=== PATIENT | female | born 1985 | race Caucasian/White ===

== ENCOUNTER 2017-06-12 15:32 | Emergency (ER) | payer OTHER, SELFPAY | END 2017-06-12 16:38 | disposition home or self-care (01) | PROVIDERS: Emergency Provider Nurse Practitioner Family; Family Provider Emergency Medicine; Visit Provider Nurse Practitioner Family | DX: R07.81 Pleurodynia (principal) | CPT/HCPCS: 71020; 81025; 99201 ==

== ENCOUNTER → 2017-07-31 12:39 | Outpatient (CLI) | payer OTHER, SELFPAY ==
[2017-07-31 13:09] LABS: Basophils % 0.6 % (0.1-2.0); Eosinophils % 0.6 % (0.1-12.0); Hematocrit 30.6 % (37.0-47.0); Hemoglobin 9.3 g/dL (12.2-16.2); Lymphocytes # 1.7 K/mm3 (0.7-4.5); Lymphocytes % 22.5 K/mm3 (10-50); Mean Corpuscular HGB Conc 30.4 g/dL (31.8-35.4); Mean Corpuscular Hemoglobin 23.5 pg (27.0-31.2); Mean Corpuscular Volume 77.4 fl (81-99); Monocytes # 0.3 K/mm3 (0.1-1.0); Monocytes % 4.5 % (1.7-9.3); Neutrophils # 5.3 K/mm3 (1.8-7.8); Neutrophils % 71.8 % (37.0-80.0); Platelet Count 221 K/mm3 (142-424); Red Blood Count 3.96 M/mm3 (4.20-5.40); Red Cell Distribution Width 14.9 % (11.5-17.5); White Blood Count 7.4 K/mm3 (4.8-10.8)
[2017-08-01 07:14] LABS: HIV Screen 4th Generation wRfx Non Reactive (Non Reactive)
[2017-08-02 18:17] LABS: Hepatitis B Surface Antigen Negative (Negative); Hepatitis C Antibody 0.1 s/co ratio (0.0-0.9); Rapid Plasma Reagin Ab Titer Non Reactive (NonRea<1:1); Rubella Antibodies, IgG <0.90 index (Immune >0.99)
== END ==
PROVIDERS: Family Provider Emergency Medicine; PCP Emergency Medicine; Visit Provider Nurse Practitioner Obstetrics & Gynecology
DX: Z34.90 Encounter for supervision of normal pregnancy, unspecified, unspecified trimester (principal)
CPT/HCPCS: 85025; 86592; 86703; 86762; 86850; 87340; 87380; G0432

== ENCOUNTER → 2017-08-08 10:06 | Outpatient (CLI) | payer OTHER, SELFPAY ==
--- NOTE | 2017-08-08 10:23 | US_ITS ---
US OB /maternal detail: INDICATION: ITS.REASON: 20 wk+ Anatomy Scan ORDERING PHYSICIAN: Russell Anderson MD PATIENT AGE: 31 years TECHNIQUE: ultrasound transabdominal scanning. COMPARISON: No previous relevant studies. FINDINGS: Single viable intrauterine gestation. breech position. Placenta: anterior placenta grade 1. Amniotic fluid volume is slightly elevated with an ARTHUR of 19 cm. The cervix appears satisfactory. Closed and measuring 3.5 cm in length. Complete survey performed and was unremarkable on the submitted images as in PACS. No discrete anomalies identified on survey imaging by technologist. Active fetus. Three-vessel cord with satisfactory umbilical cord insertion. 4- chamber heart noted. Survey of brain & ventricles. Face and neck survey unremarkable. Diaphragm and chest views unremarkable. Abdomen: Both kidneys noted and unremarkable. Stomach noted and satisfactory. Spine: Survey of the spine satisfactory with no anomalies identified nor imaged. Both arms and legs noted. Amniotic Fluid: Adequate. Maternal adnexa: No significant findings. Measurements: Average ultrasound age 27w2d. Gestational Age . Estimated due date by ultrasound age 0511/05/2017. Estimated weight 985 grams. The percentile size was not calculated. BPD = 28w1d OFD = 27w2d HC = 27w2d AC = 26w5d FL = 26w5d Heart Rate = 144 bpm Cerebellum = 28w1d Humerus = 26w1d HC/AC is 1.13. CI is 79%. FL/BPD is 71%. FL/AC is 22%. The amniotic fluid index is elevated at 19 cm. IMPRESSION: There is a live intrauterine gestation at 27 weeks 2 days with an estimated due date of 11/05/2017. Amniotic fluid volume is slightly elevated at 19 cm. No obvious anomalies. Please see above for detail
== END ==
PROVIDERS: Family Provider Emergency Medicine; PCP Emergency Medicine; Visit Provider Nurse Practitioner Obstetrics & Gynecology
DX: Z36.0 Encounter for antenatal screening for chromosomal anomalies (principal)
CPT/HCPCS: 76811

== ENCOUNTER 2017-08-15 16:48 | Outpatient (CLI) | payer OTHER, SELFPAY ==
--- NOTE | 2017-08-15 17:15 | HMH.ACPN2 ---
Internal Medicine - PN: Subj *Date: 08/15/17 *Time: 17:15 Interval history: She 26 weeks complaining of some left swelling in her feet and legs. Says it is worse at the end of the day and better in the mornings. She says it is been going on for at least a month. She does not have any Homans sign she does have some edema in the left foot and 1+ edema in the left lower leg. Her calf is nontender. Exam - Constitutional no acute distress Assessment and Plan (1) Current visit: No Status: Acute Qualifiers: Category: Medical Code(s): Z34.90 - Encounter for supervision of normal , unspecified, unspecified trimester - Assessment and plan all Dx Assessment and Plan for all problems:: She just has a minimal amount of swelling in her left leg. She does not have any Homans sign or calf tenderness. She has an appointment in my office tomorrow morning.
[2017-08-15 17:26] VITALS: BP 99/61; PULSE 104; RESP 18; TEMP 37; O2SAT 98; BMI 33.5
== END 2017-08-15 18:35 | disposition home or self-care (01) ==
LOC: OBOUT 16:49 → OB 16:50
PROVIDERS: PCP Emergency Medicine; Visit Provider Nurse Practitioner Obstetrics & Gynecology
DX: O12.03 Gestational edema, third trimester (principal); Z3A.28 28 weeks gestation of pregnancy; R60.0 Localized edema
CPT/HCPCS: 59025

== ENCOUNTER → 2017-08-16 09:18 | Outpatient (CLI) | payer OTHER, SELFPAY ==
--- NOTE | 2017-08-16 09:21 | NVE_ITS ---
Venous Exam Indications: 729.5 Pain in limb. 782.3 Edema. IMPRESSIONS No evidence of deep or superficial vein thrombosis involving the right lower extremity and left lower extremity History: Swelling of both lower extremities. Risk factors: : 29 weeks. Patient states both her legs began swelling 08/11/17. The left is greater than right. Denies trauma. Complete lower extremity venous duplex evaluation. Doppler flow study including spectral analysis, color and farnsworth scale imaging. Location: Vascular laboratory. Patient status: Outpatient. CRITICAL FINDINGS - Reported to: Dr. Anderson - Read back and verified. - 08/16/17 - 09:45 - Bilateral venous dopplers negative for DVT or SVT Tables: Venous flow and imaging: + +-------+ + Location Overall Flow properties + +-------+ + Right common femoral Patent Normal phasicity; spontaneous; normal augmentation; compressible + +-------+ + Right saphenofemoral junction Patent Compressible + +-------+ + Right profunda femoral Patent Compressible + +-------+ + Right femoral Patent Normal phasicity; spontaneous; normal augmentation; compressible; no reflux + +-------+ + Right greater saphenous Patent Normal phasicity; spontaneous; normal augmentation; compressible + +-------+ + Right popliteal Patent Normal phasicity; spontaneous; normal augmentation; compressible + +-------+ + Right posterior tibial Patent Compressible + +-------+ + Right peroneal Patent Compressible + +-------+ + Right gastrocnemius Patent Compressible + +-------+ + Right soleal Patent Compressible + +-------+ + Left common femoral Patent Normal phasicity; spontaneous; normal augmentation; compressible + +-------+ + Left saphenofemoral junction Patent Compressible + +-------+ + Left profunda femoral Patent Compressible + +-------+ + Left femoral Patent Normal phasicity; spontaneous; normal augmentation; compressible + +
== END ==
PROVIDERS: Family Provider Emergency Medicine; PCP Emergency Medicine; Visit Provider Nurse Practitioner Obstetrics & Gynecology
DX: M79.89 Other specified soft tissue disorders (principal); R60.0 Localized edema; M79.604 Pain in right leg; M79.605 Pain in left leg
CPT/HCPCS: 93970

== ENCOUNTER 2017-08-22 06:57 | Outpatient (CLI) | payer OTHER, SELFPAY ==
--- NOTE | 2017-08-22 | US_ITS ---
US OB biophysical profile, US OB follow up, US SD Ratio umbilcal artery: Indication: Pelvic pain, abdominal pain ITS.REASON: Pain ORDERING PHYSICIAN: Russell Anderson MD PATIENT AGE: 32 years COMPARISON: 08/08/2017 FINDINGS: There is a single live fetus present which is in cephalic presentation. heart and body motion noted. The placenta is anterior and grade 1. No previa or abruption. The following parameters are obtained: Average ultrasound age is 29 weeks 5 days. Estimated due date by ultrasound is 11/02/2017. Estimated weight is 1419 g. This is 42nd percentile BPD: 30 weeks 6 days OFD: 28 weeks 4 days HC: 29 weeks 2 days AC: 30 weeks 4 days FL: 28 weeks 0 days heart rate: 156 bpm. HC/AC: 1.01 Cephalic index: 83% FL/BPD: 68% FL/AC: 20% Amniotic fluid index: 28.4. There is polyhydramnios. Previously the amniotic fluid index was 19 cm. Qualitative AFV: 2 breathing movements: 2 Gross body movements: 2 Tone: 2 Biophysical profile score: 8/8 Doppler evaluation of the umbilical artery: SD ratio: 2.3 Resistive index: 0.57 No obvious anomalies evident. Placenta: Anterior and grade 1 Cervix: Appears closed and measures 4 cm. There is questionable thinning of the anterior uterine wall near the region of the section. Patient's left kidney and spleen are imaged and have an unremarkable appearance. IMPRESSION: 1. There is a single live fetus in cephalic presentation with an average ultrasound age of 29 weeks 5 days with estimated due date of 11/02/2017. There has been adequate progression compared to the previous study. 2. Polyhydramnios with an ARTHUR of 28 cm previously 19 cm 3. Questionable thinning of the anterior uterine wall. 4. Biophysical profile 8 of 8 5. Unremarkable Doppler evaluation of the umbilical artery
[2017-08-22 07:20] VITALS: BP 121/75; PULSE 114; RESP 22; TEMP 36.8; O2SAT 99; BMI 33.5
[2017-08-22 07:46] VITALS: BMI 33.5
[2017-08-22 08:03] LABS: Appearance,Urine CLOUDY (Clear); Bilirubin,Urine Negative (Negative); Blood, Urine Negative (Negative); Color,Urine YELLOW (Yellow); Glucose,Urine (UA) Negative (Negative); Ketones,Urine Negative (Negative); Leukocyte Esterase,Urine 2+ (Negative); Microscopic, Urine URINE MICROSCOPIC (MICROSCOPIC); Nitrate,Urine Negative (Negative); Protein,Urine Negative (Negative); Specific Gravity, Urine 1.025 (1.005-1.030); Urobilinogen,Urine 0.2 EU/dl (0.2)
[2017-08-22 08:25] LABS: Bacteria,Urine 1+ /lpf; Squamous Epithelial Cell,Urine TNTC #/hpf (0-5)
--- NOTE | 2017-08-22 08:27 | P.PN_ITS ---
Internal Medicine - PN: Subj *Date: 08/22/17 *Time: 08:26 Interval history: She is a 32-year-old 3 para 2 who is 29 weeks gestational age. She started having lower abdominal pain this morning. The pain seems to come and go. On the monitor she is not having contractions. Her cervix is long as. She has had 2 previous sections. She is tender over her utero-ovarian Exam Vital signs and Labs for Last 24 Hours: Temp Pulse Resp BP Pulse Ox 98.2 F 114 H 22 121/75 99 08/22/17 07:20 08/22/17 07:20 08/22/17 07:20 08/22/17 07:20 08/22/17 07:20 Laboratory Results - last 24 hr 08/22/17 07:15: Urine Color Yellow, Urine Appearance Cloudy, Urine pH 6.0, Ur Specific [place] 1.025, Urine Protein Negative, Urine Glucose (UA) Negative, Urine Ketones Negative, Urine Blood Negative, Urine Nitrate Negative, Urine Bilirubin Negative, Urine Urobilinogen 0.2, Ur Leukocyte Esterase 2+ A, Urine RBC None, Urine WBC 5-10, Ur Squamous Epith Cells Tntc, Urine Bacteria 1+ I & O for Last 24 hours: Intake & Output 08/19/17 08/20/17 08/21/17 08/22/17 11:59 11:59 11:59 11:59 Weight 214 lb - Constitutional mild distress - *Routine Abdominal Exam Present: soft, tenderness Assessment and Plan (1) False labor before 37 completed weeks of gestation Current visit: Yes Status: Acute Category: Medical Code(s): O47.00 - False labor before 37 completed weeks of gestation, unspecified trimester - Assessment and plan all Dx Assessment and Plan for all problems:: It is not clear what is causing her discomfort but I am concerned about labor as well as dehiscence of her uterine scar. We will get an ultrasound this morning. We will give her a fluid bolus. We will give her something for pain.
[2017-08-22 11:36] LABS: Amphetamine/Metha Screen,Urine Negative ng/mL (<1000); Barbiturates Screen,Urine Negative ng/mL (<200); Benzodiazepines Screen,Urine Negative ng/mL (200); Cannabinoid Screen,Urine Negative ng/mL (<50); Cocaine Screen,Urine Negative ng/g (<300); Methadone Screen,Urine Negative ng/mL (<300); Opiate Screen,Urine Negative ng/mL (<300); Phencyclidine Screen,Urine Negative ng/mL (<25)
[2017-08-22 12:30] VITALS: BP 101/67; PULSE 120; RESP 26; TEMP 36.6; O2SAT 99
== END 2017-08-22 13:54 | disposition hospice, home (50) ==
LOC: OBOUT 06:58 → OB 07:00
PROVIDERS: PCP Nurse Practitioner Obstetrics & Gynecology; Visit Provider Nurse Practitioner Obstetrics & Gynecology
DX: O26.893 Other specified pregnancy related conditions, third trimester (principal); Z3A.29 29 weeks gestation of pregnancy; R10.30 Lower abdominal pain, unspecified
CPT/HCPCS: 59025; 76816; 76819; 76820; 80305; 81001; 87086; 87088; 87186; 96360; 96361; 96372

== ENCOUNTER 2017-08-23 10:41 | Outpatient (CLI) | payer OTHER, SELFPAY ==
[2017-08-23 11:02] VITALS: BMI 35.0
[2017-08-23 11:03] VITALS: BP 119/72; PULSE 111; RESP 18; TEMP 36.5; O2SAT 97; BMI 34.9
== END 2017-08-23 11:27 | disposition home or self-care (01) ==
LOC: OBOUT 10:42 → OB 10:44
PROVIDERS: PCP Emergency Medicine; Visit Provider Nurse Practitioner Obstetrics & Gynecology
DX: O60.03 Preterm labor without delivery, third trimester (principal); Z3A.30 30 weeks gestation of pregnancy
CPT/HCPCS: 96372

== ENCOUNTER 2017-09-16 01:12 | Inpatient (IN) ==
[2017-09-16 01:52] LABS: Basophils # 0.1 K/mm3 (0-0.2); Basophils % 0.5 % (0.1-2.0); Eosinophils # 0.1 K/mm3 (0.0-0.4); Eosinophils % 0.7 % (0.1-12.0); Hematocrit 35.3 % (37.0-47.0); Hemoglobin 10.8 g/dL (12.2-16.2); Lymphocytes # 4.1 K/mm3 (0.7-4.5); Lymphocytes % 41.4 K/mm3 (10-50); Mean Corpuscular HGB Conc 30.8 g/dL (31.8-35.4); Mean Corpuscular Hemoglobin 24.9 pg (27.0-31.2); Mean Corpuscular Volume 80.8 fl (81-99); Mean Platelet Volume 10.3 fl (7.4-10.4); Monocytes # 0.5 K/mm3 (0.1-1.0); Monocytes % 4.7 % (1.7-9.3); Neutrophils # 5.2 K/mm3 (1.8-7.8); Neutrophils % 52.8 % (37.0-80.0); Platelet Count 272 K/mm3 (142-424); Red Blood Count 4.36 M/mm3 (4.20-5.40); White Blood Count 9.8 K/mm3 (4.8-10.8)
--- NOTE | 2017-09-16 03:41 | Operative Note ---
Date of procedure: 09/16/17 Pre-op Diagnosis:: premature rupture of membranes, possible abruption, desire for sterilization, previous section Post-op Diagnosis:: premature rupture of membranes possible small abruption, desire for sterilization, previous section, breech presentation Procedure performed:: Repeat lower segment transverse section and bilateral salpingectomy. Surgeon:: Russell Anderson MD Planisher(s):: Dr. Elkins NURSE WOUND CARE:: Bunny Leblanc Anesthesia: spinal Estimated blood loss (mL): 600 Clinical Note:: She is a 32-year-old 3 para 2 who is 33 and 5 weeks gestational age. She came in with ruptured membranes that happened about 1:00 in the morning. She was having some vaginal bleeding and we suspect that she may have had a small abruption as well. As result of that we elected to perform a repeat lower segment transverse section. She also had expressed desire for sterilization. The risks and benefits of surgery were discussed the patient prior to surgery. Operative findings:: She delivered a liveborn male child at 2:54 AM on the morning of September 16, 2017. We really did not see any evidence of abruption. The lower segment was not very well formed. The baby had a very thick gelatinous cord. The baby had Apgars of 5 at 1 and 5 at 5 minutes. The fetus was in the breech presentation. PH was 7.30. Ovaries and tubes appeared normal. Operative note:: She was taken to the operating room where spinal anesthesia was found be adequate. She was prepped and draped in normal sterile fashion in the supine position with a leftward tilt. A Jose catheter was in the bladder. A Pfannenstiel skin incision was made with knife then carried through to the underlying layer of fascia with cautery. The fascia was opened in the midline with cautery and extended laterally using Bravo scissors. Michael clamps were applied to the superior aspect of the fascial incision which was tented up and the underlying rectus muscles dissected off using cautery. The Michael clamps were then applied to the inferior aspect of the fascial incision which in a similar fashion was tented up and the underlying rectus muscles dissected off using cautery. The rectus muscles were then in the midline, the peritoneum identified, and entered sharply with Metzenbaum scissors. This incision was then extended superiorly and inferiorly with cautery. We had good visualization of the bladder inferiorly. The lower blade of the [place] was inserted so as to push the bladder out of the way. There was really no lower segment formed so we elected to just make a transverse incision through the uterine muscle in the lower segment. Transverse incision was made through the uterine muscle to the amnion. This incision was then extended laterally using fingers traction. The amnion was entered sharply with knife. The 's breech was then delivered atraumatically. This was followed by the shoulders and the rest of the ' s body atraumatically. The oropharynx and nasopharynx were bulb suctioned. The was then handed off to Dr. Dalal who assigned Apgars of 5 at 1 minute and 5 at 5 minutes. We then obtained cord blood as well as cord pH. The pH was 7.30. Using gentle traction on the cord and countertraction on the fundus I was able to easily deliver the placenta intact. It had a normal three-vessel cord. The uterus was then cleared of clots and debris and exteriorized from the abdominal cavity. The uterine incision was then closed using running 0 Vicryl suture in a locked fashion. A second layer of the same suture was used to imbricate the first layer. The bladder peritoneum was then closed using running 2-0 Vicryl suture in a locked fashion. We then performed a bilateral salpingectomy by first grasping the distal end of the right tube and using the cautery blade on its side we cauterized along the mesosalpinx. The distal end of the fallopian tube was then cut away at the cornua. There was a small amount of bleeding here and I grasped the distal end of the tube with a Crystal clamp and sutured this. This was similar performed on the patient's left side. The gutters and cul-de-sac were then cleared of clots and debris and the uterus was returned the abdominal cavity. Once again hemostasis was assured. I elected to place 2 pieces of Surgicel along the uterine incision. The peritoneum was grasped with Crystal clamps and closed using running 2-0 Vicryl suture. The rectus muscles were then reapproximated using running 0 Vicryl suture. The fascia was closed using running #1 Vicryl suture. The subcutaneous tissues were then irrigated with warm water followed by closure Kareen's fascia using running 2-0 Monocryl suture. The skin was closed with carey. Sterile dressings were applied. She tolerated the procedure well and was taken to the recovery room in excellent condition. All sponges minute and needle counts were correct. Estimate a blood loss was approximately 600 mL. Condition: stable Disposition: PACU Specimens:: Bilateral fallopian tubes, placenta Complications:: None
--- NOTE | 2017-09-16 04:07 | Progress Note ---
[facility] Anesthesia Checklist - Patient Identification Patient Identification: Arm Band - Structural Data Admitted From: Home Planned Operative Procedure/s: repeat c/s with btl Consent for Planned Operative Procedure(s) Verified: Yes Verified Documents: Surgical Consent, History and Physical - NPO Status Verified Time NPO: 00:00 - Additional verifications Anesthesia Reactions: No - Airway Assessment C-Spine Mobility Assessed: Yes (mp2) TMJ Mobility Assessed: Yes Dentition: Good Dentition - Neurological Assessment Level of Consciousness: Awake, Alert - Anesthesia Plan Anesthesia Risk discussed: Yes Anesthesia Plan: Verified ASA Class: II (e) Anesthesia Type: Spinal [facility] Anesthesia HX I have reviewed the patient's past medical history: Yes Medical History: Denies:: Anxiety, Asthma, Depression Other Surgeries: Yes: , Other (derrick) Amputation: No Fractures: No *Family Hx:: Cancer, Diabetes
--- NOTE | 2017-09-16 04:08 | Progress Note ---
[facility] Anesthesia Record Part II Discharge Time: 04:10 Destination: Obstetric PACU nurse assessment reviewed?: Yes Patient Condition:: Good Anesthesia Complications:: None
--- NOTE | 2017-09-16 04:08 | Progress Note ---
[facility] Anesthesia Record Part I Intake, IV Amount: 1,100 Estimated blood loss (mL): 600 Urine output (mL): 50 Blood Pressure: 106/65 SaO2: 100 Pulse Rate: 117 Respiratory Rate: 16 Temperature: 99.1 F Patient is:: Awake, Stable Stable to PACU at:: 03:40
--- NOTE | 2017-09-16 15:00 | Pharmacy Consult Notes ---
[facility] Pharmacy VTE Monitoring - Patient Demographics Admission date: 09/15/17 Report Date: 09/16/17 Time: 15:00 Allergies/Adverse Reactions: Patient Allergies topiramate [From TOPAMAX] Allergy (Unknown, Verified 09/13/17 13:32) amoxicillin Allergy (Verified 09/13/17 13:32) Height: 1.7 m Weight: 104.326 kg - VTE Risk Labs: VTE Related Lab Results Hgb 10.8 g/dL (12.2-16.2) L 09/16/17 01:43 Hct 35.3 % (37.0-47.0) L 09/16/17 01:43 Plt Count 272 K/mm3 (142-424) 09/16/17 01:43 BUN 12 mg/dL (7-18) 09/16/17 01:43 Creatinine 0.82 mg/dL (0.55-1.02) 09/16/17 01:43 Estimated Creat Clear 164 mL/min (0-300) 09/16/17 01:43 - Prophylaxis Types of VTE Prophylaxis: IPCS Knee High Location of Applied Device: Bilateral Lower Extremeties - VTE Diagnosis Confirmed Treatment or plan recommended: Continue Current Treatment
[2017-09-17 06:13] LABS: Basophils % 0.1 % (0.1-2.0); Eosinophils # 0.1 K/mm3 (0.0-0.4); Eosinophils % 0.7 % (0.1-12.0); Lymphocytes # 1.6 K/mm3 (0.7-4.5); Lymphocytes % 20.8 K/mm3 (10-50); Mean Corpuscular HGB Conc 29.8 g/dL (31.8-35.4); Mean Corpuscular Hemoglobin 24.6 pg (27.0-31.2); Mean Corpuscular Volume 82.6 fl (81-99); Mean Platelet Volume 8.7 fl (7.4-10.4); Monocytes # 0.5 K/mm3 (0.1-1.0); Monocytes % 6.5 % (1.7-9.3); Neutrophils # 5.7 K/mm3 (1.8-7.8); Platelet Count 131 K/mm3 (142-424); Red Blood Count 2.94 M/mm3 (4.20-5.40); Red Cell Distribution Width 16.3 % (11.5-17.5); White Blood Count 7.9 K/mm3 (4.8-10.8)
[2017-09-17 06:18] LABS: Hemoglobin 7.2 g/dL (12.2-16.2)
[2017-09-17 06:19] LABS: Hematocrit 24.2 % (37.0-47.0)
--- NOTE | 2017-09-17 13:19 | History & Physical Report ---
OB - H&P: HPI Antepartum - History of Present Illness Chief complaint: Ruptured membranes at 33 weeks - History of Present Criteria for establishing EDC:: LMP confirmed by 1st trimester US care: good care Ultrasounds: normal 1st trimester US, normal mid trimester US Obstetrical complications: previous Medical complications: none Planning to breastfeed?: No H History I have reviewed the patient's past medical history: Yes Medical History: Denies:: Anxiety, Asthma, Depression Other Surgeries: Yes: , Other (derrick) Amputation: No Fractures: No - *Social History Smoking Status: Never smoker Alcohol Intake: never Substance Use Type: denies use - Psychiatric History Pschychiatric History:: Denies:: Anxiety, Depression *Family Hx:: Cancer, Diabetes Para: 2 Meds Home Medications Medication Instructions Recorded Confirmed Type 1 tab PO DAILY 07/31/17 09/16/17 History vitamin,calcium,ophyhdzr-fywn-nlkvr acid tablet Loratadine [Claritin] 10 mg PO DAILY 08/15/17 09/16/17 History RX: Ferrous Sulfate 325 mg PO DAILY 08/15/17 09/16/17 History RX: raNITIdine HCl [Ranitidine HCl] 150 mg PO BID 08/15/17 09/16/17 History Allergies Allergy/AdvReac Type Severity Reaction Status Date / Time topiramate [From TOPAMAX] Allergy Unknown Verified 09/13/17 13:32 amoxicillin Allergy Verified 09/13/17 13:32 OB - H&P: Exam - Physical Exam Vital signs: Temp Pulse Resp BP Pulse Ox 98.1 F 105 H 18 123/63 100 09/17/17 13:00 09/17/17 13:00 09/17/17 13:00 09/17/17 13:00 09/17/17 13:00 - Constitutional no acute distress OB - Results - Labs Labs: Short CBC 09/17/17 Range/Units 05:30 WBC 7.9 (4.8-10.8) K/mm3 Hgb 7.2 L* (12.2-16.2) g/dL Hct 24.2 L (37.0-47.0) % Plt Count 131 L D (142-424) K/mm3 OB - A/P Antepartum (1) premature rupture of membranes (PPROM) delivered, current hospitalization Current visit: Yes Status: Acute (2) False labor before 37 completed weeks of gestation Current visit: No Status: Acute - Additional Plan Plan: other (She was delivered by section at 33 weeks and 5 days.)
--- NOTE | 2017-09-17 13:23 | Discharge Summary ---
General - General Admission date: 09/16/17 Discharge date: 09/17/17 HPI HPI: She is a 32-year-old 3 now para 3 who was 33 and 5 weeks gestational age. 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 The baby was in the breech presentation. She has had 2 previous sections and she was in active labor. As result of that we elected to deliver her. She also had some mild vaginal bleeding at the time of her ruptured membranes and was felt that she had possible mild abruption so this was further evidence that we should deliver her. She also expressed desire for sterilization. The risks and benefits of surgery as well as the irreversibility of bilateral salpingectomy were discussed with the patient prior to surgery. Hospital Course Hospital Course: On September 16 she underwent a repeat lower segment transverse section and delivered a liveborn male child at 2:54 AM on the morning of September 16, 2017. Baby was a liveborn male child weighing 4 lbs. 1 oz. with Apgars of 5 at 1 minute and 5 at 5 minutes. She has done well postoperatively and has remained afebrile throughout her hospitalization. The surgery her hemoglobin was 10.8 and this morning it was 7.2. As result of that we have elected to transfuse her 2 units of blood. We are awaiting the post transfusion hemoglobin. She has positive blood, she is rubella nonimmune and was group B streptococcus unknown. She is bottlefeeding. Her baby has been transferred to and it suspected that he has Jaun Thom syndrome. He is scheduled to have surgery soon. As result of this we are going to transfer her to the [facility]. Objective Vital signs: Temp Pulse Resp BP Pulse Ox 98.1 F 105 H 18 123/63 100 09/17/17 13:00 09/17/17 13:00 09/17/17 13:00 09/17/17 13:00 09/17/17 13:00 no acute distress - *Routine Abdominal Exam Present: soft Comments: Her incision is clean and dry. - *Routine Extremities Exam Present: edema Comments: She has 2+ pedal edema. Results Labs on day of discharge: Labs from last 24 hours 09/17/17 09/16/17 05:30 01:43 WBC 7.9 RBC 2.94 L D Hgb 7.2 L* Hct 24.2 L MCV 82.6 MCH 24.6 L MCHC 29.8 L RDW 16.3 Plt Count 131 L D MPV 8.7 Neut % (Auto) 72.0 Lymph % (Auto) 20.8 [place] % (Auto) 6.5 Eos % (Auto) 0.7 Baso % (Auto) 0.1 Neut # (Auto) 5.7 Lymph # (Auto) 1.6 [place] # (Auto) 0.5 Eos # (Auto) 0.1 Baso # (Auto) 0.0 Blood Type O Positive Antibody Screen Negative Crossmatch (AHG) See Detail DS: Diagnosis - Discharge Diagnosis (1) premature rupture of membranes (PPROM) delivered, current hospitalization Status: Acute (2) False labor before 37 completed weeks of gestation Status: Acute (3) Anemia, Status: Acute Discharge Plan - Patient Discharge Instructions ACTIVITY: No heavy lifting DIET: continue same diet - Follow up Plan Disposition: Xfer Short-Term Hosp Home Medications: Home Medications Medication Instructions Recorded Confirmed Type 1 tab PO DAILY 07/31/17 09/16/17 History vitamin,calcium,rzxcyoip-oqgw-tyvyk acid tablet Loratadine [Claritin] 10 mg PO DAILY 08/15/17 09/16/17 History RX: Ferrous Sulfate 325 mg PO DAILY 08/15/17 09/16/17 History RX: raNITIdine HCl [Ranitidine HCl] 150 mg PO BID 08/15/17 09/16/17 History Prescriptions/Medication Reconciliation: Continue vitamin,calcium,dlojthlk-fgzs-wimcq acid tablet 1 tab PO DAILY Loratadine [Claritin] 10 mg PO DAILY RX: Ferrous Sulfate 325 mg PO DAILY RX: raNITIdine HCl [Ranitidine HCl] 150 mg PO BID
[2017-09-17 13:41] LABS: Hematocrit 34.5 % (37.0-47.0)
[2017-09-17 13:46] LABS: Hemoglobin 10.8 g/dL (12.2-16.2)
== END 2017-09-17 20:39 | disposition short-term general hospital (02) ==
LOC: OBOUT 01:12 → OB 01:16
PROVIDERS: ADMIT Obstetrics & Gynecology; ATTEND Nurse Practitioner Obstetrics & Gynecology

== ENCOUNTER 2020-07-19 23:50 | Emergency (ER) | payer OTHER, SELFPAY ==
[2020-07-20 00:05] VITALS: BP 110/70; PULSE 115; RESP 18; TEMP 37; O2SAT 96; BMI 37.9
--- NOTE | 2020-07-20 00:11 | XR_ITS ---
PROCEDURE: XR KNEE LT 3V CLINICAL INDICATION: Twisting injury with pain COMPARISON: No exams were available for comparison FINDINGS: No fracture or dislocation. No lytic or blastic change. There is normal mineralization. The joint spaces are well-preserved. No significant degenerative/arthritic changes. No erosive changes evident. Other findings:There may be a small suprapatellar effusion IMPRESSION: Possible small suprapatellar effusion Dictated by: Lc Gunn MD 07/20/2020 06:08 Lc Gunn MD in OV 07/20/2020 06:08
--- NOTE | 2020-07-20 00:35 | HMH.EDLOEX ---
ED Disposition Clinical Impression: Left knee injury Qualifiers: Encounter type: initial encounter Qualified Code(s): S89.92XA - Unspecified injury of left lower leg, initial encounter Disposition: Home, Self-Care Condition on Discharge: Good Instructions: DI for Knee Pain Additional Instructions: ice and call ortho and pcp in am Referrals: Esau Vernon MD [Primary Care Provider] - Jama Matthews MD [Staff Physician] - - Critical Care Critical Care Time: No Attestation: On 07/19/20, the high probability of a clinically significant, sudden or life threatening deterioration of the following system(s) required my full and direct attention, intervention and personal management. The time I documented below is in addition to time spent performing reported procedures but includes the following listed in this critical care notation. Medical Decision Making - Medical Records Medical records reviewed: Yes: I reviewed the patient's medical records. - Regulo Inquiry Pt receiving controlled substance: No Vital Signs: 07/20/20 00:05 Temperature 98.6 F Temperature Source Oral Pulse Rate [Left] 115 H Respiratory Rate 18 Blood Pressure [Left Arm] 110/70 Blood Pressure Mean [Left Arm] 83 Blood Pressure Source [Left Arm] Automatic Cuff Blood Pressure Position [Left Arm] Sitting 02 Sat by Pulse Oximetry 96 Oxygen Delivery Method Room Air - Lab Data Lab results reviewed: Yes: I reviewed the patient's lab results. Orders (Tests/Meds): ED MEDICATIONS Discontinued Medications Generic Name Dose Route Start Last Admin Trade Name Freq PRN Reason Stop Dose Admin Dexamethasone Sodium Phosphate 8 mg 07/20/20 00:11 07/20/20 00:38 Dexamethasone 4mg/Ml 1ml Vial IV 07/20/20 00:12 Not Given ONCE ONE Dexamethasone Sodium Phosphate 8 mg 07/20/20 00:38 07/20/20 00:39 Dexamethasone 4mg/Ml 1ml Vial IM 07/20/20 00:39 8 mg ONCE ONE Administration Ketorolac Tromethamine 60 mg 07/20/20 00:11 07/20/20 00:37 Ketorolac 60mg/2ml Vial IM 07/20/20 00:12 60 mg ONCE ONE Administration ORDERS Category Date Time Status XR knee LT 3V Stat Exams 07/20/20 00:11 Taken - Radiology Data #1 Image(s): Knee Image Reviewed: Yes I reviewed the patient's radiology image Preliminary Findings: No Fracture Seen Lower Extremity Injury HPI - General Chief Complaint: Extremity Injury, Lower Stated Complaint: Pain in Left Knee;Gives out causing her to fall Time Seen by Provider: 07/20/20 00:15 Mode of Arrival: Ambulatory Source of Information: Patient, Medical Record Limitations: No Limitations Description of Symptoms (Recalled from ER Triage Doc. by RN): Pt states she twisted this evening and now has left knee pain with ROM and pressure - History of Present Illness HPI Narrative: rotation injury lt knee with swelling and pain with wt bearing today complaint: knee injury Onset (ago): hour(s) Injury: Left: knee Type of Injury: eversion Place: home Severity: moderate Context: walking Associated symptoms: snap/pop sensation, able to partially bear weight Other symptoms: none - Related Data Home Medications Medication Instructions Recorded Confirmed Loratadine [Allergy Relief] 10 mg PO DAILY 02/11/19 02/11/19 Previous Rx's Medication Instructions Recorded Azithromycin [Zithromax 250mg 250 mg PO DIRECTED #6 tab 02/11/19 tab] Benzonatate [Tessalon Perle 100mg 100 mg PO TID #30 cap 02/11/19 Cap] predniSONE [Prednisone 20mg 20 mg PO BID #10 tab 02/11/19 Tab] cefdinir 300 mg capsule 300 mg PO BID 7 Days #14 cap 02/15/19 Allergies Allergy/AdvReac Type Severity Reaction Status Date / Time topiramate [From TOPAMAX] Allergy Unknown Verified 09/01/18 00:40 amoxicillin Allergy Verified 09/01/18 00:40 [facility] History - Hepatitis A Screen Drug use history?: No High risk sexual behaviors?: No History of sexually transmitted infection?: No Currentl
[2020-07-20 00:53] VITALS: BP 114/72; PULSE 98; RESP 16; TEMP 37; O2SAT 98
== END 2020-07-20 00:55 | disposition home or self-care (01) ==
PROVIDERS: Emergency Provider Emergency Medicine; PCP Internal Medicine Adolescent Medicine
DX: S89.92XA Unspecified injury of left lower leg, initial encounter (principal); X50.1XXA Overexertion from prolonged static or awkward postures, initial encounter; Y92.019 Unspecified place in single-family (private) house as the place of occurrence of the external cause
CPT/HCPCS: 73562; 99282

== ENCOUNTER → 2020-07-24 12:19 | Outpatient (CLI) | payer OTHER, SELFPAY ==
--- NOTE | 2020-07-24 12:22 | XR_ITS ---
PROCEDURE: XR KNEE LT 4V CLINICAL INDICATION: LT knee pain COMPARISON: CR XR KNEE LT 3V from 07/20/2020 FINDINGS: No fracture or dislocation. No lytic or blastic change. There is normal mineralization. The joint spaces are well-preserved. No significant degenerative/arthritic changes. No erosive changes evident. Other findings:None. IMPRESSION: No acute findings. Dictated by: Lc Gunn MD 07/24/2020 13:16 Lc Gunn MD in [place] 07/24/2020 13:16
== END ==
PROVIDERS: PCP Internal Medicine Adolescent Medicine; Visit Provider Orthopaedic Surgery
DX: M25.562 Pain in left knee (principal)
CPT/HCPCS: 73564

== ENCOUNTER → 2020-07-30 15:14 | Outpatient (CLI) | payer OTHER, SELFPAY ==
--- NOTE | 2020-07-30 15:14 | MR_ITS ---
PROCEDURE: MR KNEE LT WO CON CLINICAL INDICATION: Left knee pain Injury with pain COMPARISON: CR XR KNEE LT 4V from 07/24/2020 TECHNIQUE: Routine multiplanar multi echo sequences are performed without gadolinium enhancement. FINDINGS: The cruciate ligaments, and medial collateral ligament are unremarkable. There is thickening of the proximal aspect of the fibular collateral ligament suggesting a sprain. The patellar tendon and quadriceps tendon appear intact and the patellar cartilage is well preserved. No evidence of meniscal tear. There is increased T2 signal involving the posterior aspect of the medial tibial condyle posteriorly consistent with bone bruise. There are some faint curvilinear areas of decreased T1 signal in this area suggesting microfracture. Only small amount of joint fluid noted. IMPRESSION: 1. Suspect sprain of the fibular collateral ligament proximally. 2. Bone bruise of the proximal tibia medially and posteriorly with suspected microfracture. 3. No evidence of cruciate ligament tear or meniscal tear. Dictated by: Lc Gunn MD 07/31/2020 09:11 Lc Gunn MD in [place] 07/31/2020 09:11
== END ==
PROVIDERS: PCP Internal Medicine Adolescent Medicine; Visit Provider Orthopaedic Surgery
DX: M25.562 Pain in left knee (principal)
CPT/HCPCS: 73721

== ENCOUNTER 2020-09-03 11:00 | Outpatient (RCR) | payer OTHER, SELFPAY ==
--- NOTE | 2020-08-07 11:16 | HMH.PTOPEV ---
PT Outpatient Evaluation Rehab PT Outpatient Evaluation Start: 08/07/20 11:08 Freq: Status: Active Protocol: Document 08/07/20 11:08 RADHA (Rec: 08/07/20 11:16 RADHA [id number]) Electronically Signed By Arvin Roberson, PT 08/07/20 11:08 Outpatient Therapy Subjective History Subjective History Pt reports acute injury to L knee in late , sit-to- stand w/twist, 'felt pop and it buckled'. Recent MRI has revealed L knee LCL sprain, and medial tibial plateau bone bruise. Pt reports moderate- to-severe L knee pain w/wb'ing activity, and 'it still feels unstable'. Chief Complaint Pain,Stiff,Clicks,Gives out/ Unstable,Weakness Symptom Type Ache,Sharp,Dull,Numbness Symptoms Relieved By Rest/Positioning,Ice, Prescription Meds Symptoms Aggravated By Standing,Physical Activity, Walking Prior Functional Limitations None Current Functional Limitations Housework,Standing,Walking, Stairs Symptom Description Constant but Variable Level of pain today (0-10) 8 Pain scale - at its best (0-10) 3 Pain scale - at its worst (0-10) 9 Hip/Knee Eval Gait Observation General Gait Pattern Observation Antalgic Gait,Wide Based Gait Palpation Tenderness left Knee Palpation Finding Tenderness Knee Palpation Overall Comment 3/4 LCL, medial JT LINE MMT Hip Flexion Strength Grade 4- Good- Hip Abduction Strength Grade 4- Good- Hip Adduction Strength Grade 4- Good- Hip Extension Strength Grade 4 Good Knee Extension Strength Grade 4- Good- Knee Flexion Strength Grade 4- Good- ROM Knee Flexion Active Range of Motion ( 0-100 degrees) Knee Flexion Passive Range of Motion ( 0-125 degrees) Knee ROM Limitations Pain Effusion joint effusion knee exam standard left Mid - Patellar Circumerential Measure ( 40.5 cm) Outpatient Therapy Assessment Impairments Problems/Impairmments Palpation Tenderness,Impaired Range of Motion,Impaired Strength,Impaired Gait Pattern ,Impaired Walking,Impaired Standing,Impaired Household Care,Impaired Stair Climbing, Increased Edema,Subjective C/O Pain,Impaired Self Care/Self
== END 2020-09-03 11:05 | disposition home or self-care (01) ==
LOC: PT 11:00
PROVIDERS: PCP Internal Medicine Adolescent Medicine; Visit Provider Orthopaedic Surgery
DX: S83.422D Sprain of lateral collateral ligament of left knee, subsequent encounter (principal)
CPT/HCPCS: 97010; 97014; 97035; 97110; 97163; G0283

== ENCOUNTER 2021-08-18 20:01 | Emergency (ER) | payer OTHER, SELFPAY ==
[2021-08-18 20:20] VITALS: BP 113/81; PULSE 70; RESP 18; TEMP 37; O2SAT 99; BMI 30.5
--- NOTE | 2021-08-18 20:26 | HMH.EDUTC ---
[facility] Clinical Impression: Migraine Qualifiers: Migraine type: unspecified Status migrainosus presence: without status migrainosus Intractability: not intractable Qualified Code(s): G43.909 - Migraine, unspecified, not intractable, without status migrainosus Disposition: Home, Self-Care Condition on Discharge: Good Instructions: Migraine -- Adult, DI for Migraine Additional Instructions: Go home lay down and try to sleep off remainder of migraine headache Follow up with Family Doctor if migraine returns Return if needed Straight to ER if any life threatening symptoms Referrals: Esau Vernon MD [Primary Care Provider] - As needed Time of Disposition: 21:08 Medical Decision Making - Regulo Inquiry Pt receiving controlled substance: No Regulo was queried for this patient: No Vital Signs: 08/18/21 20:20 Temperature 98.6 F Temperature Source Oral Pulse Rate [Right Radial] 70 Respiratory Rate 18 Blood Pressure [Right Arm] 113/81 Blood Pressure Mean [Right Arm] 91 Blood Pressure Source [Right Arm] Automatic Cuff Blood Pressure Position [Right Arm] Sitting 02 Sat by Pulse Oximetry 99 Oxygen Delivery Method Room Air Orders (Tests/Meds): ED MEDICATIONS Discontinued Medications Generic Name Dose Route Start Last Admin Trade Name Freq PRN Reason Stop Dose Admin Diphenhydramine HCl 25 mg 08/18/21 20:32 08/18/21 20:56 Diphenhydramine 50mg/Ml Vial IM 08/18/21 20:33 25 mg ONCE ONE Administration Ketorolac Tromethamine 60 mg 08/18/21 20:32 08/18/21 20:56 Ketorolac 60mg/2ml Vial IM 08/18/21 20:33 60 mg ONCE ONE Administration Metoclopramide HCl 10 mg 08/18/21 20:32 08/18/21 20:56 Metoclopramide 10mg Tablet PO 08/18/21 20:33 10 mg ONCE ONE Administration Medical Decision Narrative: Patient reports migraine much better after medication will dc home [facility] [place] - General Stated complaint: harp, UNDER STRESS Time Seen by Provider: 08/18/21 20:26 Mode of Arrival: Ambulatory Source of Information: Patient Limitations: No Limitations Description of Symptoms (Recalled from Triage Doc. by RN): c/o migraine since yesterday HEENT Symptoms (Recalled from RN notes): Yes (HARP) Resp Symptoms (Recalled from RN notes): No Skin Symptoms (Recalled from RN notes): No MS Symptoms (Recalled from RN notes): No Functional Status (Recalled from RN notes): n/a - History of Present Illness Provider Complaint: Patient states that she has a history of migraine headaches States that she started with migraine yesterday and it has continued today States that she has drink coffee and stuff like she has done in the past to help with it but hasnt worked Denies worse headache of life - Related Data Home Medications Medication Instructions Recorded Confirmed Loratadine [Allergy Relief] 10 mg PO DAILY 02/11/19 08/03/20 Previous Rx's Medication Instructions Recorded Benzonatate [Tessalon Perle 100mg 100 mg PO TID #30 cap 02/11/19 Cap] Allergies Allergy/AdvReac Type Severity Reaction Status Date / Time topiramate [From TOPAMAX] Allergy Unknown Verified 08/03/20 08:31 amoxicillin Allergy Verified 08/03/20 08:31 - Worker's Comp Is this a Worker's Comp case?: No [facility] History - Hepatitis A Screen Drug use history?: No High risk sexual behaviors?: No History of sexually transmitted infection?: No Currently employed?: No Childcare worker?: No Do you have indoor plumbing?: Yes Do you have electricity?: Yes Attestation statement:: This patient has been screened for Hepatitis A risk factors. I have reviewed the patient's past medical history: Yes Medical History: Denies:: Anxiety, Asthma, Depression, Diabetes Mellitus Type 1, Diabetes Mellitus Type 2 Other Medical History: Reports: Anemia, Other Laterality Cases: Bilateral: Other Other Surgeries: Yes: No Previous Surgery, , Other Amputation: No Fractures: No - Social History Smoking Status: Former
[2021-08-18 21:13] VITALS: BP 113/81; PULSE 70; RESP 18; TEMP 37; O2SAT 99
== END 2021-08-18 21:14 | disposition home or self-care (01) ==
PROVIDERS: Emergency Provider Nurse Practitioner; PCP Internal Medicine Adolescent Medicine
DX: G43.909 Migraine, unspecified, not intractable, without status migrainosus (principal)
CPT/HCPCS: 96372; 99202; G0463

== ENCOUNTER 2021-10-17 20:08 | Emergency (ER) | payer OTHER, SELFPAY ==
[2021-10-17 20:09] VITALS: BP 104/62; PULSE 123; O2SAT 99
[2021-10-17 20:10] VITALS: BMI 29.0
--- NOTE | 2021-10-17 20:10 | ECG_ITS ---
APPROVED REPORT Exam: Resting ECG HR:120 bpm ECG Measurements Heart Rate 120 AXES WV 125 P 67 QRSd 77 QRS 96 QT 339 T 3 QTc 410 Conclusion SINUS TACHYCARDIA BORDERLINE RIGHT AXIS DEVIATION [QRS AXIS > 90] NONSPECIFIC ST & T-WAVE ABNORMALITY ABNORMAL RHYTHM ECG UNCONFIRMED REPORT Electronically signed by : Burak Rincon MD 10/18/2021 14:14:09
[2021-10-17 20:11] VITALS: BP 104/62; PULSE 136; RESP 29; TEMP 36.7; O2SAT 96; BMI 29.0
--- NOTE | 2021-10-17 20:11 | XR_ITS ---
PROCEDURE INFORMATION: Exam: XR Chest Exam date and time: 10/17/2021 8:15 PM Age: 36 years old Clinical indication: Sternal or substernal pain; Additional info: Chest pain TECHNIQUE: Imaging protocol: XR of the chest. Views: 2 views. COMPARISON: CR XR CHEST 2V 02/11/2019 8:57 PM FINDINGS: Lungs: Unremarkable. No consolidation. Pleural spaces: Unremarkable. No pleural effusion. No pneumothorax. Heart/Mediastinum: Unremarkable. No cardiomegaly. Bones/joints: Unremarkable. IMPRESSION: No acute findings.
[2021-10-17 20:26] LABS: Microscopic, Urine URINE MICROSCOPIC (MICROSCOPIC)
[2021-10-17 20:30] VITALS: BP 108/63; PULSE 105; PULSE 97; RESP 14; RESP 25; O2SAT 98
[2021-10-17 20:30] LABS: Basophils # 0.2 K/mm3 (0-0.2); Basophils % 1.6 % (0.1-2.0); Eosinophils # 0.1 K/mm3 (0.0-0.4); Hematocrit 40.5 % (37.0-47.0); Hemoglobin 13.1 g/dL (12.2-16.2); Lymphocytes # 1.4 K/mm3 (0.7-4.5); Lymphocytes % 12.8 % (10-50); Mean Corpuscular HGB Conc 32.5 g/dL (31.8-35.4); Mean Corpuscular Hemoglobin 25.5 pg (27.0-31.2); Mean Corpuscular Volume 78.5 fl (81-99); Mean Platelet Volume 10.8 fl (7.4-10.4); Monocytes # 0.5 K/mm3 (0.1-1.0); Monocytes % 4.4 % (1.7-9.3); Neutrophils # 8.8 K/mm3 (1.8-7.8); Neutrophils % 80.2 % (37.0-80.0); Platelet Count 268 K/mm3 (142-424); Red Blood Count 5.15 M/mm3 (4.20-5.40); Red Cell Distribution Width 15.2 % (11.5-17.5)
[2021-10-17 20:30] LABS: Appearance,Urine SL CLOUDY (Clear); Blood, Urine 3+ (Negative); Color,Urine YELLOW (Yellow); Glucose,Urine (UA) Negative (Negative); Ketones,Urine TRACE (Negative); Leukocyte Esterase,Urine Negative (Negative); Nitrate,Urine Negative (Negative); PH,Urine 5.5 (5.0-8.5); Protein,Urine TRACE (Negative)
--- NOTE | 2021-10-17 20:30 | HMH.EDCP ---
ED Disposition Clinical Impression: Atypical chest pain Disposition: Home, Self-Care Condition on Discharge: Good Instructions: DI for Atypical Chest Pain Additional Instructions: call pcp for follow up Referrals: Esau Vernon MD [Primary Care Provider] - - Critical Care Critical Care Time: No Attestation: On 10/17/21, the high probability of a clinically significant, sudden or life threatening deterioration of the following system(s) required my full and direct attention, intervention and personal management. The time I documented below is in addition to time spent performing reported procedures but includes the following listed in this critical care notation. Medical Decision Making - Medical Records Medical records reviewed: Yes: I reviewed the patient's medical records. - Regulo Inquiry Pt receiving controlled substance: No Vital Signs: 10/17/21 20:09 10/17/21 20:11 10/17/21 20:30 Temperature 98.1 F Temperature Source Oral Pulse Rate 123 H 105 H Pulse Rate [Right Brachial] 136 H Respiratory Rate 29 H 25 H Blood Pressure 104/62 L 108/63 L Blood Pressure [Right Arm] 104/62 L Blood Pressure Mean 69 Blood Pressure Mean [Right Arm] 76 Blood Pressure Source [Right Arm] Automatic Cuff Blood Pressure Position [Right Arm] Sitting 02 Sat by Pulse Oximetry 99 96 98 Oxygen Delivery Method Room Air Room Air Room Air - Lab Data Lab results reviewed: Yes: I reviewed the patient's lab results. Lab Results 10/17/21 20:11: WBC 11.0 H, RBC 5.15, Hgb 13.1, Hct 40.5, MCV 78.5 L, MCH 25.5 L, MCHC 32.5, RDW 15.2, Plt Count 268, MPV 10.8 H, Neut % (Auto) 80.2 H, Lymph % (Auto) 12.8, [place] % (Auto) 4.4, Eos % (Auto) 1.0, Baso % (Auto) 1.6, Neut # (Auto) 8.8 H, Lymph # (Auto) 1.4, [place] # (Auto) 0.5, Eos # (Auto) 0.1, Baso # (Auto) 0.2 10/17/21 20:11: Sodium 139, Potassium 3.8, Chloride 105, Carbon Dioxide 26, Anion Gap 11.8, BUN 5 L, Creatinine 0.90, Estimated Creat Clear 116, Estimated GFR 71, Est GFR ( Amer) 86, Glucose 91, Calcium 8.9, Total Bilirubin 0.7, Direct Bilirubin 0.1, Conjugated Bilirubin 0.0, Indirect Bilirubin 0.6, Unconjugated Bilirubin 0.6, AST 41 H, ALT 40, Alkaline Phosphatase 84, Troponin I < 0.01, C-Reactive Protein 3.6, Total Protein 7.8, Albumin 4.3 10/17/21 20:11: ESR 20 10/17/21 20:11: Procalcitonin 0.076, TSH 1.54, Thyroxine (T4) 10.1 10/17/21 20:16: Lipase 96 10/17/21 20:22: Urine Color Yellow, Urine Appearance Sl cloudy, Urine pH 5.5, Ur Specific [place] 1.020, Urine Protein Trace, Urine Glucose (UA) Negative, Urine Ketones Trace, Urine Blood 3+, Urine Nitrate Negative, Urine Bilirubin 1+ A, Urine Urobilinogen 1.0, Ur Leukocyte Esterase Negative, Urine RBC 10-20, Urine WBC 3-5, Ur Squamous Epith Cells 3-5, Urine Bacteria Trace 10/17/21 20:22: Urine HCG, Qual Negative 10/17/21 20:22: Urine Opiates Screen Negative, Urine Methadone Screen Negative, Ur Barbituates Screen Negative, Ur Phencyclidine Scrn Negative, Ur Amphetamines Screen Negative, U Benzodiazepines Scrn Negative, Urine Cocaine Screen Negative, U Marijuana (THC) Screen Negative Result diagrams: 10/17/21 20:11 10/17/21 20:11 Orders (Tests/Meds): ED MEDICATIONS Generic Name Dose Route Start Last Admin Trade Name Freq PRN Reason Stop Dose Admin Lactated Ringer's 1,000 mls @ 999 mls/hr 10/17/21 20:15 10/17/21 20:16 Lactated Ringer's 1000 Ml Bag IV 10/17/21 21:15 999 mls/hr .Q1H1M BRANDI Administration Sodium Chloride 8 ml 10/17/21 20:58 Sodium Chloride 0.9% 10ml Vial IV 11/16/21 20:57 NEEDED PRN dilute pepcid Discontinued Medications Generic Name Dose Route Start Last Admin Trade Name Freq PRN Reason Stop Dose Admin Aspirin 324 mg 10/17/21 20:10 10/17/21 20:16 Aspirin 81mg Chewable Tablet PO 10/17/21 20:11 324 mg ONCE ONE Administration Famotidine 20 mg 10/17/21 20:58 10/17/21 21:01 Famotidine 20mg/2ml Vial IV 10/17/21 20:59 20 mg ONCE ONE Administr
[2021-10-17 20:33] LABS: Urine Pregnancy, HCG Qual. Negative (Negative)
[2021-10-17 20:38] LABS: Alanine Aminotransferase 40 U/L (12-78); Albumin Level 4.3 g/dl (3.5-5.0); Alkaline Phosphatase 84 U/L (38-126); Anion Gap 11.8 mEq/L (5-15); Aspartate Amino Transferase 41 U/L (14-36); Bilirubin,Direct 0.1 mg/dl (0.0-0.4); Bilirubin,Indirect 0.6 mg/dL (0.0-0.9); Bilirubin,Total 0.7 mg/dl (0.2-1.3); Bilirubin,Unconjugated 0.6 mg/dL (0.0-1.1); Blood Urea Nitrogen 5 mg/dl (7-17); Calcium 8.9 mg/dl (8.4-10.2); Carbon Dioxide 26 mmol/L (22.0-30.0); Chloride 105 mmol/L (98-107); Creatinine Clearance Estimated 116 mL/min (50-200); Estimated Glomerular Filt Rate 71 ml/min (>60); GFR (African American) 86 ML/MIN (>60); Glucose 91 mg/dl (74-100); Potassium 3.8 mmoL/L (3.5-5.1); Sodium 139 mmol/L (136-145); Total Protein,Serum 7.8 g/dl (6.3-8.2)
[2021-10-17 20:39] LABS: Bilirubin,Urine 1+ (Negative)
[2021-10-17 20:41] LABS: Barbiturates Screen,Urine Negative ng/ml (<200)
[2021-10-17 20:42] LABS: Benzodiazepines Screen,Urine Negative ng/ml (<200)
[2021-10-17 20:43] LABS: Amphetamine/Metha Screen,Urine Negative ng/ml (<1000); Cocaine Screen,Urine Negative ng/ml (<300)
[2021-10-17 20:44] LABS: C-Reactive Protein 3.6 mg/L (0-4)
[2021-10-17 20:44] LABS: Cannabinoid Screen,Urine Negative ng/ml (<50); Methadone Screen,Urine Negative ng/ml (<300)
[2021-10-17 20:45] LABS: Opiate Screen,Urine Negative ng/ml (<300)
[2021-10-17 20:46] LABS: Phencyclidine Screen,Urine Negative ng/ml (<25)
[2021-10-17 20:50] LABS: Bacteria,Urine Trace /lpf
[2021-10-17 20:55] LABS: Troponin I < 0.01 ng/ml (0.00-0.034)
[2021-10-17 20:56] LABS: Erythrocyte Sedimentation Rate 20 mm/hr (0-20)
--- NOTE | 2021-10-17 20:56 | PC.NURSE ---
ER speaking with pt
[2021-10-17 20:58] LABS: Procalcitonin 0.076 ng/mL (0.0-2.0); T4 (Thyroxine) 10.1 ug/dl (5.53-11.0)
[2021-10-17 21:00] VITALS: BP 101/68; PULSE 92; RESP 27; O2SAT 94
[2021-10-17 21:07] LABS: Lipase 96 U/L (23-300)
[2021-10-17 21:12] LABS: Thyroid Stimulating Hormone 1.54 uIU/mL (0.465-4.68)
[2021-10-17 21:31] VITALS: BP 104/59; PULSE 99; RESP 16; O2SAT 98
[2021-10-17 22:01] VITALS: BP 104/59; PULSE 98; RESP 16; TEMP 37.1; O2SAT 98
== END 2021-10-17 22:05 | disposition home or self-care (01) ==
PROVIDERS: Emergency Provider Emergency Medicine; PCP Internal Medicine Adolescent Medicine
DX: R07.89 Other chest pain (principal)
CPT/HCPCS: 71046; 80048; 80076; 80305; 81001; 81025; 83690; 84145; 84436; 84443; 84484; 85025; 85651; 86140; 93005; 96365; 96375; 99284; J2405

== ENCOUNTER 2022-02-01 07:43 | Emergency (ER) | payer OTHER, SELFPAY ==
[2022-02-01 07:44] VITALS: BP 116/69; PULSE 82; RESP 18; TEMP 36.8; O2SAT 100; BMI 26.9
[2022-02-01 07:50] VITALS: BMI 26.9
--- NOTE | 2022-02-01 08:14 | PC.NURSE ---
ED MD AT BEDSIDE TO EVALUATE PT
--- NOTE | 2022-02-01 08:28 | PC.NURSE ---
ROUNDED ON PT AT THIS TIME, RESTING WITH EYES CLOSED. AWAKENS EASILY. REPORTS IMPROVEMENT. NO NEEDS VOICED
[2022-02-01 08:30] VITALS: BP 105/64; PULSE 81; O2SAT 98
--- NOTE | 2022-02-01 08:49 | HMH.EDGENADL ---
ED Disposition Clinical Impression: Migraine Qualifiers: Migraine type: without aura Status migrainosus presence: without status migrainosus Intractability: not intractable Qualified Code(s): G43.009 - Migraine without aura, not intractable, without status migrainosus Disposition: Home, Self-Care Condition on Discharge: Good Instructions: Migraine -- Adult Prescriptions: Butalb/Acetaminophen/Caffeine [Fiorcet Tablet] 1 tab PO Q8 #12 tablet Transmission Status: Sent to [facility] Referrals: Esau Vernon MD [Primary Care Provider] - - Critical Care Critical Care Time: No Attestation: On 02/01/22, the high probability of a clinically significant, sudden or life threatening deterioration of the following system(s) required my full and direct attention, intervention and personal management. The time I documented below is in addition to time spent performing reported procedures but includes the following listed in this critical care notation. Medical Decision Making - Medical Records Medical records reviewed: Yes: I reviewed the patient's medical records. - Regulo Inquiry Pt receiving controlled substance: No Vital Signs: 02/01/22 07:44 02/01/22 08:30 Temperature 98.2 F Temperature Source Oral Pulse Rate 81 Pulse Rate [Radial] 82 Respiratory Rate 18 Blood Pressure 105/64 L Blood Pressure [Right Arm] 116/69 Blood Pressure Mean 76 Blood Pressure Mean [Right Arm] 84 Blood Pressure Source [Right Arm] Automatic Cuff Blood Pressure Position [Right Arm] Sitting 02 Sat by Pulse Oximetry 100 98 Oxygen Delivery Method Room Air Room Air Orders (Tests/Meds): ED MEDICATIONS Generic Name Dose Route Start Last Admin Trade Name Freq PRN Reason Stop Dose Admin Sodium Chloride 10 ml 02/01/22 07:54 Sodium Chloride 0.9% 10ml Flush Syringe IV 03/03/22 07:53 NEEDED PRN Maintain IV Site Discontinued Medications Generic Name Dose Route Start Last Admin Trade Name Freq PRN Reason Stop Dose Admin Diphenhydramine HCl 25 mg 02/01/22 08:02 02/01/22 08:11 Diphenhydramine 50mg/Ml Vial IV 02/01/22 08:03 25 mg ONCE ONE Administration Sodium Chloride 1,000 mls @ 999 mls/hr 02/01/22 08:15 02/01/22 08:09 Sod Chlor 0.9% 1000ml Bag IV 02/01/22 09:15 999 mls/hr .Q1H1M BRANDI Administration Ketorolac Tromethamine 30 mg 02/01/22 08:01 02/01/22 08:10 Ketorolac 30mg/Ml Vial IV 02/01/22 08:02 30 mg ONCE ONE Administration Promethazine HCl 12.5 mg 02/01/22 08:02 02/01/22 08:09 Promethazine Hcl 25mg/Ml 1ml Vial IV 02/01/22 08:03 12.5 mg ONCE ONE Administration Sodium Chloride 25 ml 02/01/22 08:02 02/01/22 08:11 Sodium Chloride 0.9% 25ml Bag IV 02/01/22 08:03 25 ml ONCE ONE Administration - Reevaluation(s) Time: 09:23 Reevaluation #1: On reevaluation, the patient is feeling much better. Repeat neuro exam is normal. Findings consistent with migraine. Patient be placed on a medications for short-term relief. I do believe she would benefit from follow-up with neurology. Patient be given follow-up. Given strict return precautions. Verbalized understanding. Medical Decision Narrative: 36-year-old female presented to the emergency department with a headache. This appears to be an exacerbation of her typical migraine. Patient with no neurologic deficits. Patient be treated symptomatically and reevaluated. General Adult HPI - General Chief complaint: Headache Stated complaint: Severe headache Time Seen by Provider: 02/01/22 07:50 Mode of Arrival: Ambulatory Limitations: No Limitations Description of Symptoms (Recalled from ER Triage Doc. by RN): PT WITH 3 DAY HISTORY OF A HEADACHE, NAUSEA TODAY. STATES SHE HAS TAKEN ALL MEDS THAT USUALLY HELP - History of Present Illness HPI narrative: Is a 36-year-old female presented to the emergency department with a 3-day history of headache. Patient states that she has a longsta
--- NOTE | 2022-02-01 08:54 | PC.NURSE ---
ROUNDED ON PT AT THIS TIME, NO NEEDS VOICED
--- NOTE | 2022-02-01 09:45 | PC.NURSE ---
Patient is ready for discharge, just awaiting on patients ride to arrive so she can leave. She has no other needs at this time.
[2022-02-01 09:50] VITALS: BP 122/70; PULSE 80; RESP 18; TEMP 36.7; O2SAT 100
== END 2022-02-01 09:50 | disposition home or self-care (01) ==
PROVIDERS: Emergency Provider Emergency Medicine; PCP Internal Medicine Adolescent Medicine
DX: G43.009 Migraine without aura, not intractable, without status migrainosus (principal); Z79.899 Other long term (current) drug therapy; Z88.1 Allergy status to other antibiotic agents; Z88.8 Allergy status to other drugs, medicaments and biological substances
CPT/HCPCS: 96365; 96375; 99284

== ENCOUNTER 2022-02-19 00:43 | Emergency (ER) | payer OTHER, SELFPAY ==
[2022-02-19 00:44] VITALS: BP 96/61; PULSE 80; RESP 16; TEMP 36.9; O2SAT 99; BMI 25.3
[2022-02-19 01:16] LABS: Basophils # 0.1 K/mm3 (0-0.2); Basophils % 1.6 % (0.1-2.0); Eosinophils # 0.3 K/mm3 (0.0-0.4); Eosinophils % 3.4 % (0.1-12.0); Hematocrit 38.3 % (37.0-47.0); Hemoglobin 12.1 g/dL (12.2-16.2); Lymphocytes # 3.5 K/mm3 (0.7-4.5); Lymphocytes % 40.7 % (10-50); Mean Corpuscular HGB Conc 31.6 g/dL (31.8-35.4); Mean Corpuscular Hemoglobin 24.6 pg (27.0-31.2); Mean Corpuscular Volume 77.8 fl (81-99); Mean Platelet Volume 10.1 fl (7.4-10.4); Monocytes # 0.5 K/mm3 (0.1-1.0); Monocytes % 5.4 % (1.7-9.3); Neutrophils # 4.2 K/mm3 (1.8-7.8); Neutrophils % 48.9 % (37.0-80.0); Platelet Count 302 K/mm3 (142-424); Red Blood Count 4.92 M/mm3 (4.20-5.40); Red Cell Distribution Width 15.3 % (11.5-17.5); White Blood Count 8.7 K/mm3 (4.8-10.8)
--- NOTE | 2022-02-19 01:26 | PC.NURSE ---
at BS speaking with pt
--- NOTE | 2022-02-19 01:29 | HMH.EDHA ---
Discharge Plan Disposition Chief Complaint: Headache Prescriptions Prescriptions: No Action No Known Home Medications Referrals Referrals: Esau Vernon MD [Primary Care Provider] - Enter time for follow up Clinical Impressions Clinical Impression: Migraine Instructions Patient Instructions: DI for Migraine Discharge ED Provider: Gabe Cruz Headache HPI General Chief Complaint: Headache Stated Complaint: Migraine with vomiting Time Seen by Provider: 02/19/22 01:29 Mode of Arrival: Ambulatory Source of Information: Patient and Medical Record Limitations: No Limitations Description of Symptoms (Recalled from ER Triage Doc. by RN): PT WITH HX OF CHRONIC MIGRAINES. PT STATES SHE HAS TAKEN GOODY'S HEADACHE POWDER AND TYLENOL AT HOME WITHOUT RELIEF. PT REPORTS THAT SHE HAS NO RIDE HOME OTHER THAN DRIVING HERSELF. History of Present Illness HPI Narrative: hx of migraines and has persistent lassiter tonight -no fever/rash or trauma Complaint: migraine Onset (ago): day(s) Onset description: gradual Location: diffuse Severity: similar to previous episodes Quality: similar to previous headaches Relieving factors: dark room Context: occurred at rest Treatments prior to arrival: ibuprofen Related Data Home Medications Medication Instructions Recorded Confirmed No Known Home Medications 02/19/22 02/19/22 Allergies Allergy/AdvReac Type Severity Reaction Status Date / Time topiramate [From TOPAMAX] Allergy Unknown Verified 08/03/20 08:31 amoxicillin Allergy Verified 08/03/20 08:31 [facility] History Hepatitis A Screen Attestation statement:: This patient has been screened for Hepatitis A risk factors. I have reviewed the patient's past medical history: Yes Medical History: Denies: Anxiety, Asthma, Depression, Diabetes Mellitus Type 1 or Diabetes Mellitus Type 2 Other Medical History: Reports Anemia and Other Laterality Cases: Bilateral: Other Other Surgeries: Yes No Previous Surgery, and Other Amputation: No Fractures: No Social History Smoking Status: Never smoker Alcohol Intake: never Substance Use Type: denies use Occupational Status: unemployed Housing: house Household Members: family Psychiatric History Pschychiatric History:: Denies: Anxiety or Depression Family Hx:: Cancer and Diabetes PFSH PFSH Social History Smoking Status: Never smoker second hand exposure: No alcohol intake: never substance use type: denies use current occupational status: unemployed household members: family housing: house ROS Obtained: Yes All systems reviewed & no additional complaints except as documented Constitutional Constitutional: Denies fever(s) and Reports headache(s) Eyes Eyes: Denies diplopia ENT Ears, Nose, Mouth, and Throat: Reports headache(s) Cardiovascular Cardiovascular: Denies chest pain with activity Respiratory Respiratory: Denies cough Gastrointestinal Gastrointestingal: Reports nausea Genitourinary Female Genitourinary: Denies urinary incontinence Integumentary/Breasts Skin/Breast: Reports photosensitivity Neurologic Neurologic: Denies convulsions, Denies focal weakness and Reports headache(s) Physical Exam General General appearance: alert Head Head exam: normocephalic Eye Eye exam: Present PERRL and EOMI ENT ENT exam: Present mucous membranes moist Neck Neck exam: Present trachea midline Respiratory Respiratory exam: Absent normal lung sounds bilaterally Cardiovascular Cardiovascular exam: Present regular rate Abdominal Exam Abdominal exam: Present soft Extremities Exam Extremities exam: Present full ROM Neurological Exam Neurological exam: Present alert, oriented X3 and CN II-XII intact Psychiatric Psychiatric exam: Present normal affect Skin Skin exam: Absent rash Medical Decision Making Medical Records Medical records reviewed: Yes I reviewed the patient's medical records. Regulo Inquiry Pt receiving controlled substan
[2022-02-19 01:30] VITALS: BP 100/53; PULSE 67; RESP 17; TEMP 36.7; O2SAT 98
[2022-02-19 01:30] LABS: Chloride 108 mmol/L (98-107); Potassium 3.9 mmoL/L (3.5-5.1); Sodium 142 mmol/L (136-145)
[2022-02-19 01:33] LABS: Alanine Aminotransferase 19 U/L (12-78); Albumin/Globulin Ratio 1.3 (1.1-1.8); Alkaline Phosphatase 91 U/L (38-126); Anion Gap 12.9 mEq/L (5-15); Aspartate Amino Transferase 28 U/L (14-36); Bilirubin,Total 0.2 mg/dl (0.2-1.3); Blood Urea Nitrogen 6 mg/dl (7-17); Carbon Dioxide 25 mmol/L (22.0-30.0); Creatinine Clearance Estimated 101 mL/min (50-200); Estimated Glomerular Filt Rate 71 ml/min (>60); GFR (African American) 86 ML/MIN (>60); Globulin 3.1 g/dL (1.3-3.2); Total Protein,Serum 7.1 g/dl (6.3-8.2)
[2022-02-19 01:34] LABS: Calcium 8.7 mg/dl (8.4-10.2); Glucose 119 mg/dl (74-100)
[2022-02-19 01:39] LABS: C-Reactive Protein 1.5 mg/L (0-4)
[2022-02-19 01:55] LABS: Erythrocyte Sedimentation Rate 15 mm/hr (0-20)
[2022-02-19 02:06] LABS: Procalcitonin 0.046 ng/mL (0.0-2.0)
== END 2022-02-19 02:21 | disposition home or self-care (01) ==
PROVIDERS: Emergency Provider Emergency Medicine; PCP Internal Medicine Adolescent Medicine
DX: G43.909 Migraine, unspecified, not intractable, without status migrainosus (principal); Z88.1 Allergy status to other antibiotic agents; Z88.8 Allergy status to other drugs, medicaments and biological substances; Z83.3 Family history of diabetes mellitus; Z80.9 Family history of malignant neoplasm, unspecified
CPT/HCPCS: 80053; 84145; 85025; 85651; 86140; 96365; 96375; 99284; J2405

== ENCOUNTER 2022-03-01 09:36 | Emergency (ER) | payer OTHER, SELFPAY ==
[2022-03-01 10:26] VITALS: BP 135/89; PULSE 85; RESP 17; TEMP 36.9; O2SAT 99; BMI 25.3
--- NOTE | 2022-03-01 10:43 | EXP.UTC ---
Discharge Plan Disposition Patient Disposition: Home, Self-Care Condition: Good Prescriptions Prescriptions: New promethazine 25 mg tablet 25 mg PO Q6H PRN (Reason: Nausea And Vomiting) Qty: 20 0RF Referrals Follow up/Referrals: Easu Vernon MD [Primary Care Provider] - See instructions Activity Restrictions/Add. Instructions Additional Instructions/Restrictions: Drink plenty of fluids. Take tylenol or ibuprofen for pain or fever. Take the medications as directed. Follow up with your regular doctor. GO TO THE ER FOR ANY WORSENING SYMPTOMS Promethazine will make you drowsy, so don't drive or operate heavy machinery after taking it. Clinical Impressions Clinical Impression: Migraine Stand Alone Forms Stand Alone Forms: Work/School Release Instructions Patient Instructions: Migraine -- Adult Discharge ED Provider: Esau Jackman [facility] General Stated complaint: HARP, Migrane Mode of Arrival: Ambulatory Source of Information: Patient Limitations: No Limitations Time Seen by Provider: 03/01/22 10:42 Description of Symptoms (Recalled from Triage Doc. by RN): pt comes in with c/o headache since 0330 am, now turned into migraine. pt is in the process of getting a workup for her migraines, but she has ran out of her samples HEENT Symptoms (Recalled from RN notes): Yes Resp Symptoms (Recalled from RN notes): No Skin Symptoms (Recalled from RN notes): No MS Symptoms (Recalled from RN notes): No Functional Status (Recalled from RN notes): n/a History of Present Illness Provider Complaint: She states that she is here for having a migraine headache. This started around 0300 this am. She has a history of migraine and she usually takes a new migraine medication that works well, but her insurance has stopped paying for it. Related Data Previous Rx's Medication Instructions Recorded promethazine 25 mg tablet 25 mg PO Q6H PRN Nausea And 03/01/22 Vomiting #20 tabs Allergies Allergy/AdvReac Type Severity Reaction Status Date / Time topiramate [From TOPAMAX] Allergy Unknown Verified 03/01/22 10:30 amoxicillin Allergy Verified 03/01/22 10:30 Worker's Comp Is this a Worker's Comp case?: No PFSH PFSH Social History Smoking Status: Never smoker second hand exposure: No alcohol intake: never substance use type: denies use current occupational status: unemployed Travel in the last 8 weeks: None household members: family housing: house ROS Obtained: Yes All systems reviewed & no additional complaints except as documented Constitutional Constitutional: Reports system reviewed and no additional complaints, except as documented, Denies chills and Denies fever(s) Eyes Eyes: Denies eye discharge ENT Ears, Nose, Mouth, and Throat: Denies dysphagia, Denies sore throat and Denies throat swelling Cardiovascular Cardiovascular: Denies chest pain and Denies dyspnea Respiratory Respiratory: Denies chest congestion, Denies cough and Denies dyspnea Gastrointestinal Gastrointestingal: Denies abdominal pain, constipation, diarrhea, dysphagia, nausea or vomiting Musculoskeletal Musculoskeletal: Denies arthralgias Integumentary/Breasts Skin/Breast: Denies rash Neurologic Neurologic: Denies paresthesias Allergic/Immunologic Allergic/Immunologic: Denies throat swelling Physical Exam General General appearance: alert and in no apparent distress Head Head exam: atraumatic, normocephalic and normal inspection Eye Eye exam: Present normal appearance, PERRL and EOMI ENT ENT exam: Present normal exam, normal oropharynx, mucous membranes moist, TM's normal bilaterally and normal external ear exam Neck Neck exam: Present normal inspection, full ROM and trachea midline; Absent meningismus or lymphadenopathy Chest Chest inspection: Present normal inspection and symmetric chest wall rise; Absent tenderness Respiratory Respiratory exam:
[2022-03-01 11:26] VITALS: BP 135/89; PULSE 85; RESP 17; TEMP 36.9
== END 2022-03-01 11:30 | disposition home or self-care (01) ==
LOC: ER 10:12 → UTC 10:12
PROVIDERS: Emergency Provider Nurse Practitioner Family; PCP Internal Medicine Adolescent Medicine
DX: G43.909 Migraine, unspecified, not intractable, without status migrainosus (principal); R11.2 Nausea with vomiting, unspecified; Z88.0 Allergy status to penicillin; Z88.1 Allergy status to other antibiotic agents; Z88.3 Allergy status to other anti-infective agents; Z88.8 Allergy status to other drugs, medicaments and biological substances; Z56.0 Unemployment, unspecified
CPT/HCPCS: 96372; 99213; G0463

== ENCOUNTER 2022-06-05 02:17 | Emergency (ER) | payer OTHER, SELFPAY ==
[2022-06-05 02:18] VITALS: BP 127/76; PULSE 98; RESP 16; TEMP 36.6; O2SAT 98; BMI 25.8
[2022-06-05 02:36] LABS: Basophils # 0.2 K/mm3 (0-0.2); Basophils % 1.6 % (0.1-2.0); Eosinophils # 0.3 K/mm3 (0.0-0.4); Eosinophils % 2.3 % (0.1-12.0); Hematocrit 37.5 % (37.0-47.0); Hemoglobin 12.1 g/dL (12.2-16.2); Lymphocytes # 4.1 K/mm3 (0.7-4.5); Lymphocytes % 35.5 % (10-50); Mean Corpuscular HGB Conc 32.3 g/dL (31.8-35.4); Mean Corpuscular Hemoglobin 24.7 pg (27.0-31.2); Mean Corpuscular Volume 76.5 fl (81-99); Mean Platelet Volume 10.2 fl (7.4-10.4); Monocytes # 0.5 K/mm3 (0.1-1.0); Monocytes % 4.5 % (1.7-9.3); Neutrophils # 6.4 K/mm3 (1.8-7.8); Neutrophils % 56.1 % (37.0-80.0); Platelet Count 315 K/mm3 (142-424); Red Cell Distribution Width 15.4 % (11.5-17.5); White Blood Count 11.4 K/mm3 (4.8-10.8)
[2022-06-05 02:46] LABS: Alanine Aminotransferase 23 U/L (12-78); Albumin Level 4.1 g/dl (3.5-5.0); Albumin/Globulin Ratio 1.4 (1.1-1.8); Alkaline Phosphatase 92 U/L (38-126); Anion Gap 11.6 mEq/L (5-15); Aspartate Amino Transferase 28 U/L (14-36); Bilirubin,Total 0.3 mg/dl (0.2-1.3); Blood Urea Nitrogen 10 mg/dl (7-17); Carbon Dioxide 23 mmol/L (22.0-30.0); Chloride 107 mmol/L (98-107); Creatinine Clearance Estimated 103 mL/min (50-200); Estimated Glomerular Filt Rate 71 ml/min (>60); GFR (African American) 86 ML/MIN (>60); Globulin 2.9 g/dL (1.3-3.2); Glucose 112 mg/dl (74-100); Potassium 3.6 mmoL/L (3.5-5.1); Sodium 138 mmol/L (136-145)
--- NOTE | 2022-06-05 04:03 | HMH.EDHA ---
Discharge Plan Disposition Patient Disposition: Home, Self-Care Prescriptions Prescriptions: New ketorolac 10 mg tablet 10 mg PO TID PRN (Reason: pain) 5 Days Qty: 10 0RF No Action promethazine 25 mg tablet 25 mg PO Q6H PRN (Reason: Nausea And Vomiting) Qty: 20 0RF Referrals Follow up/Referrals: Burak Rincon MD [Primary Care Provider] - See instructions Discharge ED Provider: Gabe Cruz Headache HPI General Chief Complaint: Headache Stated Complaint: headache since yesterday morning Time Seen by Provider: 06/05/22 03:00 Mode of Arrival: Ambulatory Source of Information: Patient and Medical Record Limitations: No Limitations Description of Symptoms (Recalled from ER Triage Doc. by RN): pt c/o migraine x 2 days. pt has hx of migraines and states feels like her normal. History of Present Illness HPI Narrative: acute migraine lassiter w/o fever/rash or trauma Complaint: migraine Onset (ago): day(s) Onset description: gradual Location: diffuse Severity: similar to previous episodes Quality: similar to previous headaches Associated symptoms: none Treatments prior to arrival: acetaminophen and ibuprofen Related Data Previous Rx's Medication Instructions Recorded promethazine 25 mg tablet 25 mg PO Q6H PRN Nausea And 03/01/22 Vomiting #20 tabs ketorolac 10 mg tablet 10 mg PO TID PRN pain 5 days #10 06/05/22 tabs Allergies Allergy/AdvReac Type Severity Reaction Status Date / Time topiramate [From TOPAMAX] Allergy Unknown Verified 03/01/22 10:30 amoxicillin Allergy Verified 03/01/22 10:30 [facility] History Hepatitis A Screen Attestation statement:: This patient has been screened for Hepatitis A risk factors. I have reviewed the patient's past medical history: Yes Medical History: Denies: Anxiety, Asthma, Depression, Diabetes Mellitus Type 1 or Diabetes Mellitus Type 2 Other Medical History: Reports Anemia and Other Laterality Cases: Bilateral: Other Other Surgeries: Yes No Previous Surgery, and Other Amputation: No Fractures: No Social History Smoking Status: Never smoker Alcohol Intake: never Substance Use Type: denies use Occupational Status: unemployed Housing: house Household Members: family Psychiatric History Pschychiatric History:: Denies: Anxiety or Depression Family Hx:: Cancer and Diabetes [facility] Disclaimer: The information contained in this section may have been updated after the patient was seen, as this information can be updated by other users. Social History Smoking Status: Never smoker second hand exposure: No alcohol intake: never substance use type: denies use current occupational status: unemployed Travel in the last 8 weeks: None household members: family housing: house ROS Obtained: Yes All systems reviewed & no additional complaints except as documented Physical Exam General General appearance: alert Head Head exam: normocephalic Eye Eye exam: Present PERRL and EOMI ENT ENT exam: Present mucous membranes moist Neck Neck exam: Present trachea midline Respiratory Respiratory exam: Absent respiratory distress Cardiovascular Cardiovascular exam: Present regular rate Abdominal Exam Abdominal exam: Present soft Extremities Exam Extremities exam: Present full ROM Neurological Exam Neurological exam: Present alert, oriented X3 and CN II-XII intact Psychiatric Psychiatric exam: Present normal affect Skin Skin exam: Absent rash Medical Decision Making Medical Records Medical records reviewed: Yes I reviewed the patient's medical records. Regulo Inquiry Pt receiving controlled substance: No Vital Signs: 06/05/22 02:18 Temperature 97.8 F Temperature Source Oral Pulse Rate [Right] 98 H Respiratory Rate 16 Blood Pressure [Right Arm] 127/76 Blood Pressure Mean [Right Arm] 93 02 Sat by Pulse Oximetry 98 Lab Data Lab results reviewed: Yes I reviewed the
[2022-06-05 04:58] VITALS: BP 119/71; PULSE 87; RESP 16; TEMP 36.6; O2SAT 98
== END 2022-06-05 05:06 | disposition home or self-care (01) ==
PROVIDERS: Emergency Provider Emergency Medicine; PCP Internal Medicine Adolescent Medicine
DX: G43.909 Migraine, unspecified, not intractable, without status migrainosus (principal); R11.2 Nausea with vomiting, unspecified; D64.9 Anemia, unspecified; F17.200 Nicotine dependence, unspecified, uncomplicated; Z79.1 Long term (current) use of non-steroidal anti-inflammatories (NSAID); Z79.899 Other long term (current) drug therapy; Z88.0 Allergy status to penicillin; Z88.1 Allergy status to other antibiotic agents; Z88.3 Allergy status to other anti-infective agents; Z83.3 Family history of diabetes mellitus; Z80.9 Family history of malignant neoplasm, unspecified
CPT/HCPCS: 80053; 85025; 96361; 96374; 96375; 99284; J2405; J3475

== ENCOUNTER 2022-06-10 23:08 | Emergency (ER) | payer OTHER, SELFPAY ==
[2022-06-10 23:32] VITALS: BP 107/60; PULSE 88; RESP 18; TEMP 36.8; O2SAT 98
--- NOTE | 2022-06-11 00:07 | HMH.EDHA ---
Discharge Plan Disposition Patient Disposition: Home, Self-Care Prescriptions Prescriptions: No Action ketorolac 10 mg tablet 10 mg PO TID PRN (Reason: pain) 5 Days Qty: 10 0RF Ubrelvy 50 mg Tablet 50 mg PO Q1HP MDD 100 mg PRN (Reason: Migraine Headache) Rx Instructions: pt states she is ordered to take one and then take another one in an hour if her migraine persists. Referrals Follow up/Referrals: Burak Rincon MD [Primary Care Provider] - See instructions Clinical Impressions Clinical Impression: Migraine Instructions Patient Instructions: DI for Migraine Discharge ED Provider: Gabe Cruz Headache HPI General Chief Complaint: Headache Stated Complaint: Migraine Time Seen by Provider: 06/11/22 00:07 Mode of Arrival: Ambulatory Source of Information: Patient and Medical Record Limitations: No Limitations Description of Symptoms (Recalled from ER Triage Doc. by RN): Patient arrives to ER for migraine. States it started this morning at 1000. Reports she has taken 2 doses of her ubrelvy for her migraine but it has not helped. Patient was given a rx for toradol when discharged from the ER 5 days ago for migraines, however, patients states that she has not taken that either. States that nsaids dont' touch my headaches so I don't take them . Pt has light sensitivity and noise sensitivity. History of Present Illness HPI Narrative: pt with acute exacerbation of migraine lassiter - has been compliant with meds Complaint: headache Onset (ago): hour(s) Onset description: gradual Location: diffuse Severity: similar to previous episodes Quality: similar to previous headaches Relieving factors: prescription medication Context: occurred at rest Treatments prior to arrival: acetaminophen and migraine medication Related Data Home Medications Medication Instructions Recorded Confirmed ubrogepant 50 mg tablet (Ubrelvy) 50 mg PO Q1HP PRN Migraine Headache 06/10/22 06/10/22 Previous Rx's Medication Instructions Recorded ketorolac 10 mg tablet 10 mg PO TID PRN pain 5 days #10 06/05/22 tabs Allergies Allergy/AdvReac Type Severity Reaction Status Date / Time topiramate [From TOPAMAX] Allergy Unknown Verified 03/01/22 10:30 amoxicillin Allergy Verified 03/01/22 10:30 [facility] History Hepatitis A Screen Attestation statement:: This patient has been screened for Hepatitis A risk factors. I have reviewed the patient's past medical history: Yes Medical History: Denies: Anxiety, Asthma, Depression, Diabetes Mellitus Type 1 or Diabetes Mellitus Type 2 Other Medical History: Reports Anemia and Other Laterality Cases: Bilateral: Other Other Surgeries: Yes No Previous Surgery, and Other Amputation: No Fractures: No Social History Smoking Status: Current every day smoker Alcohol Intake: never Substance Use Type: denies use Occupational Status: unemployed Housing: house Household Members: family Psychiatric History Pschychiatric History:: Denies: Anxiety or Depression Family Hx:: Cancer and Diabetes PFSH [facility] Disclaimer: The information contained in this section may have been updated after the patient was seen, as this information can be updated by other users. Social History Smoking Status: Current every day smoker second hand exposure: No alcohol intake: never substance use type: denies use current occupational status: unemployed Travel in the last 8 weeks: None household members: family housing: house ROS Obtained: Yes All systems reviewed & no additional complaints except as documented Physical Exam General General appearance: alert Head Head exam: normocephalic Eye Eye exam: Present PERRL and EOMI ENT ENT exam: Present mucous membranes moist Neck Neck exam: Present trachea midline Respiratory Respiratory exam: Absent respiratory distress Cardiovascular Cardiovascular exam: Present regular rat
[2022-06-11 01:01] VITALS: BP 110/65; PULSE 78; RESP 18; TEMP 36.6; O2SAT 97
== END 2022-06-11 01:16 | disposition home or self-care (01) ==
PROVIDERS: Emergency Provider Emergency Medicine; PCP Internal Medicine Adolescent Medicine
DX: G43.909 Migraine, unspecified, not intractable, without status migrainosus (principal); D64.9 Anemia, unspecified; F17.200 Nicotine dependence, unspecified, uncomplicated; Z88.0 Allergy status to penicillin; Z88.1 Allergy status to other antibiotic agents; Z88.3 Allergy status to other anti-infective agents; Z88.8 Allergy status to other drugs, medicaments and biological substances; Z83.3 Family history of diabetes mellitus; Z80.9 Family history of malignant neoplasm, unspecified
CPT/HCPCS: 96361; 96374; 96375; 99284; J2405

== ENCOUNTER 2025-03-10 15:41 | Outpatient (CLI) | payer OTHER, SELFPAY ==
--- OUTSIDE RECORDS SUMMARY | 2025-03-10 15:46 | XMS_ITS | Clinical Summary ---
Author Organization [facility] Address [address] [place] [address] Care Team Providers Care Alcoholism Worker Name Role Phone Unavailable Primary Care Provider Unavailabl e Social History Tobacco Use Types Packs/Day Years Used Date Smoking Tobacco: Never Assessed Comments Unknown Sex and Gender Information Value Date Recorded Sex Assigned at Not on file Legal Sex Female 6:49 PM EDT Gender Identity Not on file Sexual Orientation Not on file Plan of Treatment Not on file
--- OUTSIDE RECORDS SUMMARY | 2025-03-10 15:46 | XMS_ITS | Clinical Summary ---
Author Organization [facility] Address [address] [place] [address] Care Team Providers Care Marketing Area Manager Name Role Phone Niranjan Addison MD Primary Care Provider [phone] Source Comments This information has been disclosed to you from confidential records protectedfrom disclosure by state law. You shall make no further disclosure of thisinformation without the specific, written, and informed release of theindividual to whom it pertains, or as otherwise permitted by law. A generalauthorization for the release of medical or other information is not sufficientfor the purposes of therelease of HIV test results or diagnoses. [id number] Health Allergies Active Allergy Reactions Criticality Noted Date Comments Amoxicillin Hives Medium 03/01/2021 Topiramate 08/17/2023 Medications loratadine (CLARITIN) 10 mg tablet Take 1 tablet (10 mg total) by mouth daily. Active ondansetron (ZOFRAN-ODT) 4 MG disintegrating tabletIndications: Intractable chronic migraine without aura and without status migrainosus Take 1 tablet (4 mg total) by mouth every 8 hours as needed for Nausea. 20 tablet 05/24/20 24 Active cholecalciferol, vitamin D3, (VITAMIN D3) 1000 units tabletIndications: vitamin D deficiency Take 1 tablet (1,000 Units total) by mouth daily. Indications: vitamin D deficiency 90 tablet 3 05/24/20 24 Active ferrous gluconate (FERGON) 324 MG tabletIndications: Iron deficiency Take 1 tablet (324 mg total) by mouth daily with breakfast. 90 tablet 1 06/28/19 25 Active atogepant (QULIPTA) 60 mg TabIndications:Int ractable chronic migraine without aura and without status migrainosus Take 1 tablet (60 mg total) by mouth daily. 90 tablet 1 06/28/19 25 Active nirmatrelvir 150 mg - ritonavir 100 mg (PAXLOVID) 300 mg (150 mg x 2)-100 mg DsPkIndications:CO VID Take 3 tablet combination (2 x 150 mg nirmatrelvir tablets, 300 mg total) (1 x 100 mg ritonavir tablet) by mouth twice daily for 5 days. 30 tablet 08/14/19 25 Active Active Problems Problem Noted Date Diagnosed Date Acute otitis media 08/14/2024 Assessment & Plan (08/14/2024 12:06 PM EST): Fever, bilateral ear pain L>R Sore throat and post nasal drip Fever/chills last 3 days today is day 4 Will swab for viruses and strep due to proximity living situation and significant symptoms. Treat with Augmentin for 7d. Followup if not improving. Intractable chronic migraine without aura and without status migrainosus 05/24/2024 Assessment & Plan (06/28/2024 4:04 PM EST): Unsuccessful treatment per chart with triptans, topiramate, NSAIDS, and ubrelvy. Finds relief from nausea with zofran (helps her sleep and actually finds it improves her HARP) Continue atogepant. Qulipta daily for prevention has been successful Assessment & Plan (05/24/2024 6:09 PM EST): Unsuccessful treatment per chart with triptans, topiramate, NSAIDS, and ubrelvy. Finds relief from nausea with zofran (helps her sleep and actually finds it improves her HARP) Continue atogepant. Healthcare maintenance 05/24/2024 Plantar fasciitis 05/24/2024 Vitamin D deficiency 05/24/2024 Assessment & Plan (05/24/2024 6:05 PM EST): Identified on labs Start daily supplementation 1000u cholecalciferol Recheck in 3-4 mos Iron deficiency 05/24/2024 Assessment & Plan (06/28/2024 4:09 PM EST): Had some diarrhea when starting oral ferrous sulfate. Considered malabsorption, but was not having diarrhea or GI symptoms prior, and BMI is elevated so low probability of this. Not sure if diarrhea is from her iron or vit do or just incidental due to diet or viral GE. We discussed plan to go down to just iron for now and switch to ferrous gluconate. Take daily or every other day. After tolerating this for 1 week, add the vitamin D supplement. If unable to tolerate PO, will need to do IV. Repeat iron studies in 6 wks Assessment & Plan (05/24/2024 6:07 PM EST): Lab Results Component Value Date FERRITIN 7.1 (L) 05/24/2024 Identified in setting of persistent migraines, low energy. No identified, but significantly low ferritin. Dx as symptomatic iron deficiency without anemia Start Iron PO and recheck in 3-4 months Immunizations Immunization Administration Dates Next Due COVID-19, mRNA, Moderna monovalent, age 12+ 02/25,02/19/2021 Influenza, Trivalent, Preservative-Free 05/24/20 24 Family History Medical History Relation Comments Aortic aneurysm Father Breast Cancer Maternal Aunt Heart disease Maternal Grandfather Cancer Maternal Grandmother Heart disease Maternal Grandmother Ovarian cancer Mother Thyroid disease Mother Relation Status Comments Father Maternal Aunt Maternal Grandfather Maternal Grandmother Mother Social History Tobacco Use Types Packs/Day Years Used Date Smoking Tobacco: Every Day E-cigs/Vape Smokeless Tobacco: Never Tobacco Cessation:Ready to Q uit: Not Asked; Counseling Given: Not Answered Alcohol Use Standard Drinks/Week Comments Never 0 (1 standard drink = 0.6 oz pur e alcohol) AUDIT-C Answer Date Recorded Q1: How often do you have a drink containing alc ohol? Never 03/01/2021 Average Number of Drinks Not on file 021 Frequency of Binge Drinking Not on file 11/2020 PHQ-2 Answer Date Recorded PHQ-2 Total Score 0 05/24/2024 Comments No Sex and Gender Information Value Date Recorded Sex Assigned at Female 04/21/2024 3:55 AM EDT Legal Sex Female 2:00 AM EDT Gender Identity Female 04/21/2024 3:55 AM EDT Sexual Orientation Straight 04/21/2024 3: 55 AM EDT Last Filed Vital Signs Vital Sign Reading Time Taken Comments Blood Pressure 143/110 08/14/2024 11:51 AM EST Pulse 117 08/14/2024 11:51 AM EST Temperature 37.2 C (98.9 F) 08/14/2024 11:51 AM EST Respiratory Rate 20 02/16/2024 6:55 AM EDT Oxygen Saturation 100% 08/14/2024 11:51 AM EST Inhaled Oxygen Concentration 100% 08/14/2024 1 1:51 AM EST Weight 103 kg (227 lb) 08/14/2024 11:51 AM EST Height 170.2 cm (5' 7 ) 08/14/2024 11:51 AM EST Body Mass Index 35.55 08/14/2024 11:51 AM EST Plan of Treatment Health Maintenance Due Date Last Done Comments Comprehensive Physical Exam 1986 Diabetes Screening 1986 Tobacco Cessation Readiness 1986 Immunization: Hepatitis B (1 of 3 - 19+ 3-dose series) 2005 Cervical Cancer Screening/Pa p Smear ([employer]) 2016 Immunization: Pneumococcal (2 of 2 - PCV) 03/30/2019 03/30/2018 Immunization: COVID-19 ( season) 2025 03/19/2021, 02/19/2021 Immunization: Influenza ([employer]) (#1) 02/24/2025, 03/30/2018 Depression Screening 05/24/2025 05/24/2024, 05/24/20 24 Immunization: DTaP/Tdap/Td ( 2 - Td or Tdap) 03/30/2028 03/30/2018 HIV Screening Completed 05/24/2024 Hepatitis C Screening ([employer]) Completed 4 Procedures Procedure Name Priority Date/Time Associated Diagnosis Comments HIV 1+2 ANTIBODY/ANTIGEN WITH REFLEX Routine 05/24/2024 3:43 PM EST Healthcare maintenance HEPATITIS C ANTIBODY Routine 05/24/2024 3:43 PM EST Healthcare maintenance from Last 3 Months or Most Recently Relevant to Health Maintenance Results * Hepatitis C Ab (05/24/2024 3:43 PM EST) HCV Ab Nonreactive Nonreactive 05/24/2024 5:10 PM EST [facility] Comment:Health Department no tified in accordance with reportable infectious disease guidelines. Serum 05/24/2024 3:43 PM EST 05/24/2024 4:11 PM EST Narrative HEALTH LAB - 05/24/2024 5:10 PM EST Antibodies to HCV not detected; does not exclude the possibility of exposure to HCV. us Niranjan Addison MD LAB BLOOD ORDERABLES Final Resu lt [facility] [address] * HIV 1+2 Antibody/Antigen with Reflex (05/24/2024 3:43 PM EST) HIV 1+2 AB/AGN Nonreactive Nonreactive 05/24/2024 4:59 PM EST [facility] Serum 05/24/2024 3:43 PM EST 05/24/2024 4:13 PM EST Narrative [facility] - 05/24/2024 4:59 PM EST HIV-1 p24 Antigen and HIV-1/HIV-2 Antibody not detected. us Niranjan Addison MD LAB BLOOD ORDERABLES Final Resu lt [facility] [address] [facility] from Last 3 Months or Most Recently Relevant to Health Maintenance Insurance [facility] [facility] Care Teams Marketing Area Manager Relationship Specialty Start Date End Date Niranjan Addison MD [address] [facility] [place] [address] PCP - General Internal Medicine 05/24/24
--- OUTSIDE RECORDS SUMMARY | 2025-03-10 15:46 | XMS_ITS | Clinical Summary ---
[facility] Organization [facility] Address [address] [place] [address] Care Team Providers Care Service Engineer Name Role Phone Provider, No Known Primary Care Provider Unavail able Social History Tobacco Use Types Packs/Day Years Used Date Smoking Tobacco: Never Assessed Abuse Screen Answer Date Recorded Unsafe at Home or Work/School Not on file Feels Threatened by Someone? Not on file 04/2023 Does Anyone Keep You from Co ntacting Others or Doint Things Outside the Home? Not on file 04/05/2023 Physical Sign of Abuse Present Not on file 1 Housing Stability Answer Date Recorded Current Living Arrangements Not on file 03/26 Potentially Unsafe Housing Conditions Not on romana e 04/05/2023 Family and Community Support Answer Kvng e Recorded Help with Day-to-Day Activities Not on file 04/05/2023 Lonely or Isolated Not on file 04/05/2023 Employment Answer Date Recorded Do you want help finding or keeping work or a cassandra b? Not on file 04/05/2023 Disabilities Answer Date Recorded Concentrating, Remembering, or Making Decisions Difficulty Not on file 04/05/2023 Doing Errands Independently Difficulty Not on fi le 04/05/2023 Education Answer Date Recorded Help with school or training? Not on file Preferred Language Not on file 04/05/2023 Comments Unknown Sex and Gender Information Value Date Recorded Sex Assigned at Not on file Legal Sex Female 12:09 PM EDT Gender Identity Not on file Sexual Orientation Not on file Last Filed Vital Signs Vital Sign Reading Time Taken Comments Blood Pressure 109/68 10/15/2014 9:06 AM EDT Pulse - - Temperature - - Respiratory Rate - - Oxygen Saturation - - Inhaled Oxygen Concentration - - Weight 80.7 kg (178 lb) 10/15/2014 9:06 AM EDT Height 171.5 cm (5' 7.5 ) 10/15/2014 9:06 AM EDT Body Mass Index 27.47 10/15/2014 9:06 AM EDT Plan of Treatment Health Maintenance Due Date Last Done Comments ANNUAL PHYSICAL 1986 Annual Gynecologic Pelvic an d Breast Exam 1986 HEPATITIS C SCREENING 1986 TDAP/TD VACCINES (1 - Tdap) 2005 COVID-19 Vaccine ( - 2023-2 5 season) 2025 INFLUENZA VACCINE 03/26/2025 Pneumococcal Vaccine 0-49 Aged Out No longer eligible based on patient's age to complete this topic Insurance [facility] Care Teams Service Engineer Relationship Specialty Start Date End Date Provider, [place] [address] PCP - General 09/13/17
--- OUTSIDE RECORDS SUMMARY | 2025-03-10 15:46 | XMS_ITS | Clinical Summary ---
Author Organization [facility] Address [address] [place] [address] Phone Care Team Providers Care Driver Recruiter Name Role Phone Unavailable Primary Care Provider Unavailabl e Allergies Active Allergy Reactions Criticality Noted Date Comments Amoxicillin Hives Medium 03/01/2021 Topiramate Other (See Comments) 03/01/2022 Medications QULIPTA 60 mg Oral Tablet 02/08/2024 Active cetirizine (ZYRTEC) 10 mg Oral Tablet Take 10 mg by mouth. 03/01/2021 Active fluticasone propionate (FLONASE) 50 mcg/actuation Nasl [place], Suspension 01/26/2024 Active loratadine (CLARITIN) 10 mg Oral Tablet 01/26/2024 Active Social History Tobacco Use Types Packs/Day Years Used Date Smoking Tobacco: Never Smokeless Tobacco: Never Tobacco Cessation:Counseling Given: Not Answered Comments No Sex and Gender Information Value Date Recorded Sex Assigned at Not on file Legal Sex Female 6:12 PM EDT Gender Identity Not on file Sexual Orientation Not on file Obstetrics History Last Filed Vital Signs Vital Sign Reading Time Taken Comments Blood Pressure 126/74 02/15/2024 4:36 PM EDT Pulse 100 02/15/2024 4:36 PM EDT Temperature 37.4 C (99.3 F) 02/15/2024 4:36 PM EDT Respiratory Rate 18 02/15/2024 4:36 PM EDT Oxygen Saturation 98% 02/15/2024 4:36 PM EDT Inhaled Oxygen Concentration - - Weight 104.8 kg (231 lb) 02/15/2024 4:36 PM EDT Height 170.2 cm (5' 7 ) 02/15/2024 4:36 PM EDT Body Mass Index 36.18 02/15/2024 4:36 PM EDT Plan of Treatment Health Maintenance Due Date Last Done Comments Annual Wellness Exam 1989 Hepatitis B Vaccine (1 of 3 - 19+ 3-dose series) 2005 Cervical Cancer Screening 2007 Pap Smear 2007 HPV/Pap Cotest 2016 COVID-19 Vaccine ( - 2024-2 6 season) 2025 03/19/2021, 02/19/2021 Influenza Vaccine (#1) 2025 03/30/2018 DTaP/TDaP/Td (2 - Td or Tdap) 03/30/2028 03/30/2018 Pneumococcal Vaccine 0-49 Aged Out 03/30/2018 No longer eligible based on patient's age to complete this topic Meningococcal B Vaccine Aged Out No l onger eligible based on patient's age to complete this topic Insurance [facility] [id number] [facility] [place] [id number]
--- OUTSIDE RECORDS SUMMARY | 2025-03-10 15:46 | XMS_ITS | Encounter Summary ---
Author Organization [facility] Address [address] [place] [address] Care Team Providers Care Global Marketing Intern Name Role Phone Unavailable Primary Care Provider Unavailabl e Encounter Details Date Type Department Care Team (Late st Contact Info) Description 09/26/2021 Lab Requisition [facility] Department of Laboratory Services [address] [place] [phone] Clinical Labs, [facility] Randy Olvera M.D., Ph.D. Infectious Diseases [address] [place] [address] [address] [place] [address] Social History Tobacco Use Types Packs/Day Years Used Date Smoking Tobacco: Never Assessed Comments Unknown Sex and Gender Information Value Date Recorded Sex Assigned at Not on file Legal Sex Female 3:28 PM EDT Gender Identity Not on file Sexual Orientation Not on file documented as of this encounter Plan of Treatment Not on file documented as of this encounter Procedures Procedure Name Priority Date/Time Associated Diagnosis Comments COVID-19 (SARS-COV-2) Routine 09/26/2021 2:13 PM EDT documented in this encounter Results * COVID-19 Non-Employee (09/26/2021 2:13 PM EDT) SARS-CoV-2 (COVID-19) Negative Negative TAQPATH COVID-19 [employer]EUA 09/27/2021 11:48 AM EDT CCM PCR Comment:This test was perfor med using the TaqPathTM COVID-19 Multiplex RT-PCR assay which received FDA approval under the Emergency Use Authorization (EUA). This assay targets the ORF1ab, S, and the N genes. Questions about the performance of this assay may be directed to the [facility] ([facility]) laboratory. This test has not been validated for use in asymptomatic patients, and results should be interpreted with caution. [employer] Swab 09/26/2021 2:13 PM EDT 09/26/2021 3:31 PM EDT Randy Olvera M.D., Ph.D. CHEMISTRY ORDERABLES Final Result [facility] [address] [place] [address] documented in this encounter Visit Diagnoses Not on filedocumented in this encounter Additional Health Concerns Infection Onset Date Last Indicated Resolved Time COVID-19 Rule Out 09/26/2021 09/26/2021 09/27/2021 11:48 AM EDT documented as of this encounter
--- OUTSIDE RECORDS SUMMARY | 2025-03-10 15:46 | XMS_ITS | Clinical Summary ---
Author Organization [facility] Address [address] [place] [address] Care Team Providers Care Mri Special Procedures Technologist Name Role Phone Unavailable Primary Care Provider Unavailabl e Source Comments [facility] is fully rolled out with thefollowing exceptions:General Clinical Research [facility] Social History Tobacco Use Types Packs/Day Years Used Date Smoking Tobacco: Never Assessed Comments Unknown Sex and Gender Information Value Date Recorded Sex Assigned at Not on file Legal Sex Female 3:28 PM EDT Gender Identity Not on file Sexual Orientation Not on file Plan of Treatment Health Maintenance Due Date Last Done Comments MMR IMMUNIZATION (1 of 1 - S tandard series) 1987 DTAP/Tdap/Td IMMUNIZATION (1 - Tdap) 1993 VARICELLA IMMUNIZATION (1 of 2 - 13+ 2-dose series) 1999 HEPATITIS B IMMUNIZATION (1 of 3 - 19+ 3-dose series) 2005 HPV IMMUNIZATION (1 - 3-dose SCDM series) 2013 AMB SEASONAL FLU VACCINE (#1) 02/24/2025 COVID-19 Vaccine ( - 2023-2 5 season) 2025 HIB IMMUNIZATION Aged Out No longer e ligible based on patient's age to complete this topic IPV IMMUNIZATION Aged Out No longer e ligible based on patient's age to complete this topic MCV4 IMMUNIZATION Aged Out No longer eligible based on patient's age to complete this topic MENINGOCOCCAL B VACCINE Aged Out No l onger eligible based on patient's age to complete this topic PNEUMOCOCCAL IMMUNIZATION Aged Out No longer eligible based on patient's age to complete this topic Respiratory Syncytial Virus (RSV) <20mo Aged Out No longer eligible b ased on patient's age to complete this topic Insurance [employer] [facility]
--- NOTE | 2025-03-10 15:48 | XR_ITS ---
FINAL REPORT CLINICAL HISTORY: ACUTE PAIN OF RIGHT WRIST FINDINGS: RIGHT WRIST Three views demonstrate no acute fracture or dislocation. The visualized joint spaces are normally aligned. The soft tissues are unremarkable. IMPRESSION: No acute bony abnormality. Reviewed, Interpreted and Dictated by Clair Davidson MD Transcribed by Shabnam Tuttle Authenticated and [facility]
== END 2025-03-10 23:59 | disposition home or self-care (01) ==
LOC: RAD 15:42
PROVIDERS: PCP Internal Medicine Adolescent Medicine
DX: M25.531 Pain in right wrist (principal)
CPT/HCPCS: 73110

== ENCOUNTER 2025-03-25 15:30 | Outpatient (RCR) | payer OTHER, SELFPAY | END 2025-03-25 23:59 | disposition home or self-care (01) | LOC: OT 15:30 | DX: M25.531 Pain in right wrist (principal) | CPT/HCPCS: 97032; 97035; 97140; 97165 ==